=== PATIENT | female | born 1980 | race Caucasian/White ===

== ENCOUNTER 2020-09-06 11:02 | Outpatient (REF) | payer BC, SELFPAY ==
[2020-09-06 11:18] LABS: MANUAL DIFF FLAG NO
[2020-09-06 12:26] LABS: Basophils Absolute Auto 0.1 X10*3/uL (0.0-0.2); Eosinophils Absolute Auto 0.5 X10*3/uL (0.0-0.4); Eosinophils Percent Auto 6.5 % (0-4); Hemoglobin 13.1 g/dl (12.0-16.0); Imm Gran Abs Auto 0.03 X10*3/uL (0.00-0.03); Imm Gran Pct Auto 0.4 % (0.0-0.4); Lymphocytes Absolute Auto 1.5 X10*3/uL (1.2-4.9); Lymphocytes Percent Auto 20.7 % (20-40); Mean Corpuscular HGB Conc 31.2 g/dl (31.0-35.0); Mean Corpuscular Hemoglobin 28.9 pg (27.0-33.0); Mean Corpuscular Volume 92.5 fL (80-98); Mean Platelet Volume 11.5 fL (9.4-12.3); Monocytes Absolute Auto 0.4 X10*3/uL (0.1-1.2); Monocytes Percent Auto 5.8 % (2-11); Neutrophils Absolute Auto 4.7 X10*3/uL (2.0-8.3); Neutrophils Percent Auto 65.6 % (45-73); Platelet Count 238 X10*3/uL (160-400); Red Blood Count 4.54 X10*6/uL (4.20-5.50); Red Cell Distribution Width 13.1 % (11.0-16.0); White Blood Count 7.2 X10*3/uL (4.8-10.8)
[2020-09-06 12:58] LABS: Glucose Urine UA 100 MG/DL (NEG); Leukocyte Esterase Urine TRACE (NEG); Nitrite Urine POS (NEG); PH 5.5 (5.0-8.0); Specific Gravity - Urine >= 1.030 (1.005-1.025); Urine Blood TRACE (NEG); Urine Ketones 5 MG/DL (NEG); Urine Protein 1+ MG/DL (NEG-TRACE)
[2020-09-06 13:11] LABS: Albumin Level 4.1 g/dL (3.5-5.0); Alkaline Phosphatase 53 U/L (39-117); Anion Gap 11 (12-20); Aspartate Amino Transferase 17 U/L (5-31); Bilirubin Total 0.9 mg/dL (0.0-1.0); Blood Urea Nitrogen 9 mg/dL (9-16); Calcium 9.2 mg/dL (8.4-10.2); Carbon Dioxide 24 mmol/L (22-29); Chloride 109 mmol/L (96-108); Cholesterol 223 mg/dL; Estimated Glomerular Filt Rate > 60; Glucose Fasting 100 mg/dL (60-99); HDL Cholesterol 50 mg/dL; LDL Cholesterol Calculated 142 mg/dl; Potassium 4.3 mmol/L (3.3-5.1); Sodium 140 mmol/L (135-145); Total Protein 7.1 g/dL (6.5-8.0); Triglycerides 159 mg/dL
[2020-09-06 13:24] LABS: Alanine Aminotransferase 8 U/L (0-31)
[2020-09-06 14:00] LABS: Appearance Urine CLEAR; Color Urine ORANGE
[2020-09-06 14:01] LABS: Bacteria Urine 2+ /LPF; Mucus Urine 1+ /LPF; RBC Urine 0-2 /HPF (0); Squamous Epithelial Cell Urine 1+ /LPF
== END 2020-09-06 11:03 | disposition home or self-care (01) ==
LOC: HO.LNP 11:02
PROVIDERS: PCP Internal Medicine; Visit Provider Internal Medicine
DX: Z00.00 Encounter for general adult medical examination without abnormal findings (principal); K57.90 Diverticulosis of intestine, part unspecified, without perforation or abscess without bleeding
CPT/HCPCS: 80053; 80061; 81001; 81003; 85025

== ENCOUNTER 2020-09-20 10:14 | Outpatient (REF) | payer BC, SELFPAY ==
[2020-09-20 11:07] LABS: Glucose Urine UA NEG (NEG); Leukocyte Esterase Urine TRACE (NEG); Nitrite Urine NEG (NEG); Specific Gravity - Urine >= 1.030 (1.005-1.025); Urine Blood 1+ (NEG); Urine Ketones NEG (NEG); Urine Protein TRACE MG/DL (NEG-TRACE)
[2020-09-20 11:16] LABS: Appearance Urine TURBID; Color Urine YELLOW
[2020-09-20 11:42] LABS: Bacteria Urine 2+ /LPF; RBC Urine 0-2 /HPF (0); Squamous Epithelial Cell Urine 2+ /LPF
== END 2020-09-20 10:15 | disposition home or self-care (01) ==
LOC: HO.LNP 10:14
PROVIDERS: Visit Provider Internal Medicine
DX: Z87.440 Personal history of urinary (tract) infections (principal)
CPT/HCPCS: 81001

== ENCOUNTER 2020-10-31 15:43 | Outpatient (REF) | payer BC, SELFPAY ==
[2020-10-31 15:57] LABS: Glucose Urine UA NEG (NEG); Leukocyte Esterase Urine NEG (NEG); Nitrite Urine NEG (NEG); Specific Gravity - Urine >= 1.030 (1.005-1.025); Urine Blood NEG (NEG); Urine Ketones 5 MG/DL (NEG); Urine Protein NEG (NEG-TRACE)
[2020-10-31 15:59] LABS: Appearance Urine CLEAR; Color Urine YELLOW
== END 2020-10-31 15:44 | disposition home or self-care (01) ==
LOC: HO.LNP 15:43
PROVIDERS: Visit Provider Internal Medicine
DX: R31.9 Hematuria, unspecified (principal)
CPT/HCPCS: 81003

== ENCOUNTER 2021-03-17 14:08 | Outpatient (REF) | payer BC, SELFPAY ==
[2021-03-17 15:17] LABS: Thyroid Stimulating Hormone 2.64 uIU/mL (0.32-4.0)
== END 2021-03-17 14:09 | disposition home or self-care (01) ==
LOC: HO.LNP 14:08
PROVIDERS: Visit Provider Internal Medicine
DX: R63.5 Abnormal weight gain (principal)
CPT/HCPCS: 84443

== ENCOUNTER 2021-09-15 11:19 | Outpatient (REF) | payer BC, SELFPAY ==
[2021-09-15 11:22] LABS: MANUAL DIFF FLAG NO
[2021-09-15 11:47] LABS: Basophils Percent Auto 0.6 % (0-2); Eosinophils Absolute Auto 0.3 X10*3/uL (0.0-0.4); Eosinophils Percent Auto 4.8 % (0-4); Imm Gran Abs Auto 0.02 X10*3/uL (0.00-0.03); Imm Gran Pct Auto 0.3 % (0.0-0.4); Lymphocytes Absolute Auto 1.6 X10*3/uL (1.2-4.9); Lymphocytes Percent Auto 25.9 % (20-40); Mean Corpuscular HGB Conc 31.7 g/dl (31.0-35.0); Mean Corpuscular Hemoglobin 28.4 pg (27.0-33.0); Mean Corpuscular Volume 89.7 fL (80.0-98.0); Mean Platelet Volume 11.3 fL (9.4-12.3); Monocytes Absolute Auto 0.4 X10*3/uL (0.1-1.2); Monocytes Percent Auto 5.8 % (2-11); Neutrophils Absolute Auto 3.9 x10*3/uL (2.0-8.3); Neutrophils Percent Auto 62.6 % (45-73); Platelet Count 241 X10*3/uL (160-400); Red Blood Count 4.57 X10*6/uL (4.20-5.50); White Blood Count 6.3 X10*3/uL (4.8-10.8)
[2021-09-15 12:01] LABS: Alanine Aminotransferase 13 U/L (0-31); Albumin Level 3.9 g/dL (3.5-5.0); Alkaline Phosphatase 61 U/L (39-117); Anion Gap 9 (12-20); Aspartate Amino Transferase 21 U/L (5-31); Blood Urea Nitrogen 9 mg/dL (9-16); Calcium 8.9 mg/dL (8.4-10.2); Carbon Dioxide 26 mmol/L (22-29); Chloride 105 mmol/L (96-108); Cholesterol 228 mg/dL; Estimated Glomerular Filt Rate > 60; Glucose Fasting 98 mg/dL (60-99); HDL Cholesterol 40 mg/dL; LDL Cholesterol Calculated 147 mg/dl; Sodium 136 mmol/L (135-145); Total Protein 6.9 g/dL (6.5-8.0); Triglycerides 208 mg/dL
[2021-09-15 12:23] LABS: Appearance Urine CLOUDY; Color Urine YELLOW; Glucose Urine UA NEG (NEG); Leukocyte Esterase Urine NEG (NEG); Nitrite Urine NEG (NEG); Specific Gravity - Urine >= 1.030 (1.005-1.025); Urine Blood TRACE (NEG); Urine Ketones 5 MG/DL (NEG); Urine Protein TRACE MG/DL (NEG-TRACE)
[2021-09-15 13:09] LABS: Bacteria Urine 4+ /LPF; RBC Urine 0 /HPF (0); Squamous Epithelial Cell Urine 4+ /LPF
== END 2021-09-15 11:20 | disposition home or self-care (01) ==
LOC: HO.LNP 11:19
PROVIDERS: PCP Internal Medicine; Visit Provider Internal Medicine
DX: Z00.00 Encounter for general adult medical examination without abnormal findings (principal)
CPT/HCPCS: 80053; 80061; 81001; 85025

== ENCOUNTER 2022-05-08 16:29 | Inpatient (IN) | payer BC, SELFPAY ==
--- NOTE | ~2022-05-08 | CT_ITS ---
EXAMINATION: CT ABDOMEN AND PELVIS WITHOUT CONTRAST CLINICAL INFORMATION: Abdominal pain COMPARISON: CT abdomen pelvis 12/27/2015 TECHNIQUE: Multidetector volumetric imaging was performed from the superior aspect of the liver through the pubic symphysis. Sagittal and coronal reformatted images were obtained on the technologist's workstation. This CT examination was performed using dose optimization techniques as appropriate, variously including the following: *Automated exposure control *Adjustment of mA and/or kV according to patient size (this includes techniques or standardized protocols for targeted exams where dose is matched to indication/reason for exam; i.e. extremities or head) *Use of iterative reconstruction technique DLP: 611 mGy-cm FINDINGS: LUNG BASES: Unremarkable. ABDOMINAL AND PELVIC WALL: Unremarkable. LIVER AND BILIARY TREE: Unremarkable. GALLBLADDER: Unremarkable. PANCREAS: Unremarkable. SPLEEN: Stable accessory splenule. ADRENAL GLANDS: Unremarkable. KIDNEYS AND URETERS: Unremarkable. GASTROINTESTINAL TRACT: Small hiatal hernia. Colonic diverticulosis with wall thickening involving the junction of the sigmoid and descending colon with pericolonic inflammatory fat stranding and trace free fluid compatible with acute diverticulitis. There is a 2.7 x 1.6 cm fluid density lesion in the left adnexa abutting the sigmoid colon and inseparable from the left ovary incomplete characterized in the absence of contrast, unclear if this could reflect an adnexal cyst or a pericolonic abscess. No extraluminal air to suggest perforation. Normal appendix. VASCULAR: Unremarkable. LYMPH NODES/PERITONEUM: No lymphadenopathy. FREE FLUID: None. BLADDER: Unremarkable. PELVIC VISCERA: Unremarkable. OSSEOUS STRUCTURES: Unremarkable. CT/CT abdomen pelvis wo IV con IMPRESSION: Colonic diverticulosis with wall thickening involving the junction of the sigmoid and descending colon with pericolonic inflammatory fat stranding and trace free fluid compatible with acute diverticulitis. There is a 2.7 cm fluid density lesion in the left adnexa abutting the sigmoid colon and inseparable from the left ovary incomplete characterized in the absence of contrast, unclear if this could reflect an adnexal cyst or a pericolonic abscess. Consider contrast-enhanced CT versus pelvic ultrasound for further delineation.
--- NOTE | ~2022-05-08 | CT_ITS ---
EXAMINATION: CT ABDOMEN AND PELVIS WITH CONTRAST CLINICAL INFORMATION: Possible pericolonic abscess COMPARISON: CT abdomen pelvis 05/08/2022 at 6:09 PM TECHNIQUE: Multidetector volumetric images were obtained from the superior aspect of the liver through the pubic symphysis following administration 85 mL of Omnipaque 350 intravenous contrast. Sagittal and coronal reformatted images were obtained on the technologist's workstation. Oral contrast: No This CT examination was performed using dose optimization techniques as appropriate, variously including the following: *Automated exposure control *Adjustment of mA and/or kV according to patient size (this includes techniques or standardized protocols for targeted exams where dose is matched to indication/reason for exam; i.e. extremities or head) *Use of iterative reconstruction technique DLP: 938 mGy-cm FINDINGS: LUNG BASES: The visualized lung bases are unremarkable. LIVER, GALLBLADDER, AND BILIARY TREE: The liver is normal in size, shape, and attenuation. No focal hepatic lesion or biliary ductal dilatation is present. The gallbladder is unremarkable with no evidence of radiopaque gallstones, gallbladder wall thickening, or obvious pericholecystic inflammatory changes. PANCREAS: Unremarkable. SPLEEN: Unremarkable. ADRENAL GLANDS: The adrenal glands are unremarkable. However there is a 1.8 x 1.8 cm lesion adjacent to the adrenal gland and the spleen likely an accessory splenule. KIDNEYS AND URETERS: The kidneys are normal in size, shape, and attenuation. No hydronephrosis, hydroureter, or calculi seen. No perinephric stranding. BLADDER: Unremarkable. GASTROINTESTINAL TRACT: There is scattered stool, diverticuli and gas seen throughout the colon without any significant distention. There is mild fat stranding and sigmoid colon mural thickening suggestive of diverticulitis. No evidence of abscess of free air. Tiny free fluid in the pelvis is noted. No proximal bowel obstruction seen. There is minimal scattered stool in the right colon. The small bowel loops are normal caliber. Appendix is normal caliber. Hypodensity seen inferior to the sigmoid colon and lateral to the uterus corresponds to ovarian cyst measuring 1.3 cm. ABDOMINAL WALL: Small amount of umbilical hernia containing fat. LYMPH NODES: Normal. VASCULAR: Unremarkable. PELVIC VISCERA: There is a 1.3 cm cyst in the left adnexa inferior to the sigmoid colon and a 1.2 cm cyst in the right ovary on axial image 75/3 and 74/3 respectively. Tiny amount of free fluid seen in pelvis. No abnormal pelvic or inguinal lymph nodes seen. The uterus is anteverted. OSSEOUS STRUCTURES: Unremarkable. CT/CT abdomen pelvis w IV con IMPRESSION: 1. Colonic diverticulosis with sigmoid diverticulitis. No evidence of abscess, free air or proximal bowel obstruction. 2. Small bilateral ovarian cysts. 3. Small umbilical hernia containing fat. 4. There is a 1.8 x 1.8 cm lesion adjacent to the adrenal glands and the spleen suspicious for a accessory splenule. Fleischner guidelines were followed.
[2022-05-08 16:36] VITALS: BP 155/92; PULSE 97; RESP 18; TEMP 36; O2SAT 98; BMI 37.0
--- NOTE | 2022-05-08 16:36 | ED.GENADULT ---
HPI - General Adult General Chief complaint: Abdominal Pain <RONNY Hernandez - Last Filed: 05/08/22 16:38> Stated complaint: Abd pain rad to back/Dark stool <RONNY Hernandez - Last Filed: 05/08/22 16:38> Time Seen by Provider: 05/08/22 19:49 <RONNY Hernandez - Last Filed: 05/08/22 16:38> Source: patient <aJnice Le NP - Last Filed: 05/09/22 00:46> Mode of arrival: ambulatory <Janice Le NP - Last Filed: 05/09/22 00:46> Limitations: no limitations <Janice Le NP - Last Filed: 05/09/22 00:46> History of Present Illness HPI narrative: 42-year-old female presents with left lower quadrant abdominal pain radiating her to her back for the past almost 2 days. States that she has been having dark mucousy stools and has history of colitis. <Janice Le NP - Last Filed: 05/09/22 00:46> Onset (ago): day(s) (2) <Janice Le NP - Last Filed: 05/09/22 00:46> Location: abdomen <Janice Le NP - Last Filed: 05/09/22 00:46> Radiation: back <Janice Le NP - Last Filed: 05/09/22 00:46> Severity: severe <Janice Le NP - Last Filed: 05/09/22 00:46> Severity scale (1-10): 9 <Janice Le NP - Last Filed: 05/09/22 00:46> Quality: aching <Janice Le NP - Last Filed: 05/09/22 00:46> Pain Consistency: constant <Janice Le NP - Last Filed: 05/09/22 00:46> Relieving factors: none <Janice Le NP - Last Filed: 05/09/22 00:46> Exacerbating factors: eating and movement <Janice Le NP - Last Filed: 05/09/22 00:46> Associated symptoms: fever/chills, loss of appetite, malaise and nausea/vomiting <Janice Le NP - Last Filed: 05/09/22 00:46> Treatments prior to arrival: none <Janice Le NP - Last Filed: 05/09/22 00:46> Related Data Home medications: Home Medications Medication Instructions Recorded Confirmed No Known Home Meds 05/08/22 05/08/22 <RONNY Hernandez - Last Filed: 05/08/22 16:38> Allergies/adverse reactions: Allergies Allergy/AdvReac Type Severity Reaction Status Date / Time No Known Allergies Allergy Verified 05/08/22 16:38 <RONNY Hernandez - Last Filed: 05/08/22 16:38> Review of Systems Review of Systems: Constitutional: No Fever, No Chills Cardiovascular: No Chest Pain, No SOB Respiratory: No Cough, No Dyspnea Gastrointestinal: Positive Nausea, No Vomiting, No Diarrhea, positive abdominal Pain Genitourinary: No Dysuria, No Hematuria Musculoskeletal: positive back pain, No Myalgias, No Joint Swelling Skin: No Skin lacerations, No rash Neuro: No Weakness, No Numbness, No Paresthesias, No Dizziness, No Headache <Janice Le NP - Last Filed: 05/09/22 00:46> Yes all other systems are reviewed and are negative <Janice Le NP - Last Filed: 05/09/22 00:46> [facility] Past Medical History Attestation statement: The following information was validated with the patient. <Janice Le NP - Last Filed: 05/09/22 00:46> Source: old records reviewed <Janice Le NP - Last Filed: 05/09/22 00:46> Surgical History: Surgical History Previous section S/P ACL repair <RONNY Hernandez - Last Filed: 05/08/22 16:38> Social History Social History: Social History Alcohol intake: current Alcohol intake frequency: a few times a month Alcohol type: beer Patient Tobacco Use Status: Never used Tobacco Smoked in Last 30 Days: No Use of substances other than those prescribed or required for medical reasons: Yes Substance Use Type: Marijuana Substance Use Frequency: Occasionally Advance Directives: No Advance Directives Information Provided: No Nutrition Risks: No Nutritional Risk Patient : No <RONNY Hernandez Last Filed: 05/08/22 16:38> Physical Exam ED Vital Signs: Vital Signs - 24 hr 05/08/22 16:36 05/08/22 20:14 Temperature 96.8 F 96.7 F L Pulse Rate 97 89 Respiratory Rate 18 19 Blood Pressure 155/92 H 133/71 Pulse Oximetry 98 96 Oxygen Delivery Method Room Air BMI result Body Mass Index 37.0 <RONNY Hernandez Last Filed: 05/08/22 16:38> Vital Signs - 24 hr 05/08/22 16:36 05/08/22 20:14 Temperature 96.8 F 96.7 F L Pulse Rate 97 89 Respiratory Rate 18 19 Blood Pressure 155/92 H 133/71 Pulse Oximetry 98 96 Oxygen Delivery Method Room Air BMI result Body Mass Index 37.0 <EDOUARD Singh Last Filed: 05/09/22 00:46> Appearance: Alert. Oriented X3. Moderate distress. Eyes: Pupils equal, round and reactive to light. ENT: Pharynx normal. Neck: Normal inspection. Neck supple. CVS: Normal heart rate and rhythm. Pulses normal. Respiratory: No respiratory distress. Breath sounds normal. Abdomen: Soft and diffusely tender. Greater at the left lower quadrant. No rigidity or distention. Skin: Skin warm and dry. Normal skin color. Normal skin turgor. Extremities: No lower extremity edema. Gait well-balanced well coordinated. Neuro: No motor deficit. No sensory deficit. Cranial nerves 2-12 intact. <EDOUARD Singh Last Filed: 05/09/22 00:46> Course Course Course Narrative: RME performed by Jeanine Paniagua PA-C. Patient is a 42 year old female presenting to the emergency department with left lower quadrant abdominal pain. Patient has a history of diverticulum but not diverticulitis. Labs and CT ordered. Patient placed back in the waiting room pending results and room availability. <RONNY Hernandez Last Filed: 05/08/22 16:38> RME performed by Jeanine Paniagua, PA-C. Patient is a 42 year old female presenting to the emergency department with left lower quadrant abdominal pain. Patient has a history of diverticulum but not diverticulitis. Labs and CT ordered. Patient placed back in the waiting room pending results and room availability. 42-year-old female presents for 2 days of abdominal pain with mucousy dark stools. Has a history of colitis. Labs drawn and CT scan while patient was in the emergency department waiting room. CT scan indicates diverticulosis with wall thickening involving the junction of the sigmoid and descending colon with pericolonic inflammatory fat stranding. There is a 2.7 x 1.6 fluid density lesion in the left adnexa abutting the sigmoid colon, this test is requesting CT scan with contrast to rule out pericolonic abscess. CT scan with contrast ordered. I did discuss the plan with patient who agrees. Will give Motrin, Zosyn, and fluids. CT scan abdomen pelvis with contrast indicates colonic diverticulitis without abscess free air or proximal bowel obstruction. Small bilateral ovarian cysts, small umbilical hernia containing fat, and a 1.8 x 1.8 cm lesion adjacent to the adrenal glands and spleen suspicious for accessory splenule. Patient admitted for diverticulitis. Discussion with Dr. Ruiz, who accepts this patient under his care. <Janice Le NP - Last Filed: 05/09/22 00:46> Consultations Consultation #1: Joseph <Janice Le NP - Last Filed: 05/09/22 00:46> Medications Administered Discontinued Medications Generic Name Dose Route Start Last Admin Trade Name Freq PRN Reason Stop Dose Admin Piperacillin Sod/Tazobactam 50 mls @ 100 mls/hr 05/08/22 19:54 05/08/22 22:12 Sod 3.375 gm/ Sodium Chloride IV 05/08/22 20:23 Infused ONCE ONE Infusion Sodium Chloride 1,000 mls @ 999 mls/hr 05/08/22 21:26 05/08/22 23:13 Ns IV 05/08/22 22:26 Infused .Q1H1M ONE Infusion Iohexol 100 ml 05/08/22 20:53 05/08/22 20:53 Iohexol 350 Mg/Ml 100 Ml Infus..Btl IV 05/08/22 20:54 85 ml ONCE ONE Administration Morphine Sulfate 4 mg 05/08/22 19:54 05/08/22 20:35 Morphine Sulfate 4 Mg/Ml Cartridge IVPUSH 05/08/22 19:55 4 mg ONCE ONE Administration Protocol Ondansetron HCl 4 mg 05/08/22 19:54 05/08/22 20:34 Ondansetron Hcl 4 Mg/2 Ml Vial IVPUSH 05/08/22 19:55 4 mg ONCE ONE Administration <RONNY Hernandez - Last Filed: 05/08/22 16:38> Medications Administered Discontinued Medications Generic Name Dose Route Start Last Admin Trade Name Priscilla PRN Reason Stop Dose Admin Piperacillin Sod/Tazobactam 50 mls @ 100 mls/hr 05/08/22 19:54 05/08/22 22:12 Sod 3.375 gm/ Sodium Chloride IV 05/08/22 20:23 Infused ONCE ONE Infusion Sodium Chloride 1,000 mls @ 999 mls/hr 05/08/22 21:26 05/08/22 23:13 Ns IV 05/08/22 22:26 Infused .Q1H1M ONE Infusion Iohexol 100 ml 05/08/22 20:53 05/08/22 20:53 Iohexol 350 Mg/Ml 100 Ml Infus..Btl IV 05/08/22 20:54 85 ml ONCE ONE Administration Morphine Sulfate 4 mg 05/08/22 19:54 05/08/22 20:35 Morphine Sulfate 4 Mg/Ml Cartridge IVPUSH 05/08/22 19:55 4 mg ONCE ONE Administration Protocol Ondansetron HCl 4 mg 05/08/22 19:54 05/08/22 20:34 Ondansetron Hcl 4 Mg/2 Ml Vial IVPUSH 05/08/22 19:55 4 mg ONCE ONE Administration <Janice Le NP - Last Filed: 05/09/22 00:46> Medical Decision Making Differential Diagnosis Differential Diagnoses: The differential diagnosis associated with the presentation includes <Janice Le NP - Last Filed: 05/09/22 00:46> Acute abdomen, diverticulitis, colitis, abscess <Janice Le NP - Last Filed: 05/09/22 00:46> Admission/Observation Consideration of admission/observation: Escalation of care including admission/observation considered <Janice Le NP - Last Filed: 05/09/22 00:46> Patient requires admission for these findings <Jancie Le NP - Last Filed: 05/09/22 00:46> Consult Healthcare Provider Management of the patient was discussed with: Hospitalist <Janice Le NP - Last Filed: 05/09/22 00:46> Lab Data MDM Lab Attestation statement: I reviewed the patient's lab results. <Janice Le NP - Last Filed: 05/09/22 00:46> Result Diagrams: 05/08/22 16:50 05/08/22 16:50 <RONNY Hernandez - Last Filed: 05/08/22 16:38> Labs: Lab Results 05/08/22 05/08/22 05/08/22 Range/Units 16:50 16:50 20:08 WBC 11.1 H (4.8-10.8) X10*3/uL RBC 4.72 (4.20-5.50) X10*6/uL Hgb 13.7 (12.0-16.0) g/dl Hct 41.4 (37.0-47.0) % MCV 87.7 (80.0-98.0) fL MCH 29.0 (27.0-33.0) pg MCHC 33.1 (31.0-35.0) g/dl RDW 13.4 (11.0-16.0) % Plt Count 239 (160-400) X10*3/uL MPV 10.5 (9.4-12.3) fL Immature Gran % (Auto) 0.2 (0.0-0.4) % Neut % (Auto) 76.9 H (45-73) % Lymph % (Auto) 15.6 L (20-40) % [place] % (Auto) 5.4 (2-11) % Eos % (Auto) 1.6 (0-4) % Baso % (Auto) 0.3 (0-2) % Lymph # (Auto) 1.7 (1.2-4.9) X10*3/uL [place] # (Auto) 0.6 (0.1-1.2) X10*3/uL Eos # (Auto) 0.2 (0.0-0.4) X10*3/uL Baso # (Auto) 0.0 (0.0-0.2) X10*3/uL Abs Immat Gran (auto) 0.02 (0.00-0.03) X10*3/uL Absolute Neuts (auto) 8.5 H (2.0-8.3) x10*3/uL Absolute Nucleated RBC 0.000 (0.0-0.012) X10*3/uL Nucleated RBC % (auto) 0.0 (0.0-0.2) /100WBC Sodium 139 (135-145) mmol/L Potassium 3.9 (3.3-5.1) mmol/L Chloride 106 (96-108) mmol/L Carbon Dioxide 22 (22-29) mmol/L Anion Gap 15 (12-20) BUN 8 L (9-16) mg/dL Creatinine 0.86 (0.5-1.4) mg/dL Estim Creat Clear Calc 92.3 Estimated GFR > 60 Random Glucose 94 (60-115) mg/dL Calcium 9.2 (8.4-10.2) mg/dL Magnesium 2.1 (1.6-2.6) mg/dL Total Bilirubin 1.6 H (0.0-1.0) mg/dL AST 14 (5-31) U/L ALT 8 (0-31) U/L Alkaline Phosphatase 74 (39-117) U/L Total Protein 7.3 (6.5-8.0) g/dL Albumin 4.1 (3.5-5.0) g/dL Beta HCG, Quant < 2 mIU/mL Urine Color Dark Yellow Urine Appearance Clear Urine pH 5.5 (5.0-9.0) Ur Specific [place] 1.025 (1.005-1.025) Urine Protein Trace (Neg-Trace) mg/dL Urine Glucose (UA) Negative (Negative) mg/dL Urine Ketones 15 (Negative) mg/dL Urine Blood Trace H (Negative) Urine Nitrite Negative (Negative) Ur Leukocyte Esterase Trace H (Negative) Urine RBC 0-2 (0-2) /HPF Urine WBC 0-5 (0-5) /HPF Ur Squamous Epith Cells 0-2 (0-2) /HPF Urine Bacteria None Seen (None Seen) Hyaline Casts 0-2 (0-2) /LPF <RONNY Hernandez - Last Filed: 05/08/22 16:38> Lab Results 05/08/22 05/08/22 05/08/22 Range/Units 16:50 16:50 20:08 WBC 11.1 H (4.8-10.8) X10*3/uL RBC 4.72 (4.20-5.50) X10*6/uL Hgb 13.7 (12.0-16.0) g/dl Hct 41.4 (37.0-47.0) % MCV 87.7 (80.0-98.0) fL MCH 29.0 (27.0-33.0) pg MCHC 33.1 (31.0-35.0) g/dl RDW 13.4 (11.0-16.0) % Plt Count 239 (160-400) X10*3/uL MPV 10.5 (9.4-12.3) fL Immature Gran % (Auto) 0.2 (0.0-0.4) % Neut % (Auto) 76.9 H (45-73) % Lymph % (Auto) 15.6 L (20-40) % [place] % (Auto) 5.4 (2-11) % Eos % (Auto) 1.6 (0-4) % Baso % (Auto) 0.3 (0-2) % Lymph # (Auto) 1.7 (1.2-4.9) X10*3/uL [place] # (Auto) 0.6 (0.1-1.2) X10*3/uL Eos # (Auto) 0.2 (0.0-0.4) X10*3/uL Baso # (Auto) 0.0 (0.0-0.2) X10*3/uL Abs Immat Gran (auto) 0.02 (0.00-0.03) X10*3/uL Absolute Neuts (auto) 8.5 H (2.0-8.3) x10*3/uL Absolute Nucleated RBC 0.000 (0.0-0.012) X10*3/uL Nucleated RBC % (auto) 0.0 (0.0-0.2) /100WBC Sodium 139 (135-145) mmol/L Potassium 3.9 (3.3-5.1) mmol/L Chloride 106 (96-108) mmol/L Carbon Dioxide 22 (22-29) mmol/L Anion Gap 15 (12-20) BUN 8 L (9-16) mg/dL Creatinine 0.86 (0.5-1.4) mg/dL Estim Creat Clear Calc 92.3 Estimated GFR > 60 Random Glucose 94 (60-115) mg/dL Calcium 9.2 (8.4-10.2) mg/dL Magnesium 2.1 (1.6-2.6) mg/dL Total Bilirubin 1.6 H (0.0-1.0) mg/dL AST 14 (5-31) U/L ALT 8 (0-31) U/L Alkaline Phosphatase 74 (39-117) U/L Total Protein 7.3 (6.5-8.0) g/dL Albumin 4.1 (3.5-5.0) g/dL Beta HCG, Quant < 2 mIU/mL Urine Color Dark Yellow Urine Appearance Clear Urine pH 5.5 (5.0-9.0) Ur Specific [place] 1.025 (1.005-1.025) Urine Protein Trace (Neg-Trace) mg/dL Urine Glucose (UA) Negative (Negative) mg/dL Urine Ketones 15 (Negative) mg/dL Urine Blood Trace H (Negative) Urine Nitrite Negative (Negative) Ur Leukocyte Esterase Trace H (Negative) Urine RBC 0-2 (0-2) /HPF Urine WBC 0-5 (0-5) /HPF Ur Squamous Epith Cells 0-2 (0-2) /HPF Urine Bacteria None Seen (None Seen) Hyaline Casts 0-2 (0-2) /LPF <Janice Le NP - Last Filed: 05/09/22 00:46> Independent Interpretation I performed an independent interpretation of an: CT Scan <Janice Le NP - Last Filed: 05/09/22 00:46> Radiology Impression Discussion of test interpretation with radiology: I have reviewed the radiologist's reading. <Janice Le NP - Last Filed: 05/09/22 00:46> Radiologist Impression: FINDINGS: LUNG BASES: Unremarkable.? ABDOMINAL AND PELVIC WALL:? Unremarkable.? LIVER AND BILIARY TREE: Unremarkable.? GALLBLADDER: Unremarkable.? PANCREAS: Unremarkable.? SPLEEN: Stable accessory splenule.? ADRENAL GLANDS: Unremarkable.? KIDNEYS AND URETERS: Unremarkable.? GASTROINTESTINAL TRACT: Small hiatal hernia. Colonic diverticulosis with wall thickening involving the junction of the sigmoid and descending colon with pericolonic inflammatory fat stranding and trace free fluid compatible with acute diverticulitis. There is a 2.7 x 1.6 cm fluid density lesion in the left adnexa abutting the sigmoid colon and inseparable from the left ovary incomplete characterized in the absence of contrast, unclear if this could reflect an adnexal cyst or a pericolonic abscess. No extraluminal air to suggest perforation. Normal appendix. VASCULAR: Unremarkable. LYMPH NODES/PERITONEUM: No lymphadenopathy. FREE FLUID: None. BLADDER: Unremarkable.? PELVIC VISCERA: Unremarkable. OSSEOUS STRUCTURES: Unremarkable.? CT/CT abdomen pelvis wo IV con IMPRESSION: ? Colonic diverticulosis with wall thickening involving the junction of the sigmoid and descending colon with pericolonic inflammatory fat stranding and trace free fluid compatible with acute diverticulitis. There is a 2.7 cm fluid density lesion in the left adnexa abutting the sigmoid colon and inseparable from the left ovary incomplete characterized in the absence of contrast, unclear if this could reflect an adnexal cyst or a pericolonic abscess. Consider contrast-enhanced CT versus pelvic ultrasound for further delineation. ?FINDINGS: LUNG BASES: The visualized lung bases are unremarkable.? LIVER, GALLBLADDER, AND BILIARY TREE: The liver is normal in size, shape, and attenuation. No focal hepatic lesion or biliary ductal dilatation is present. The gallbladder is unremarkable with no evidence of radiopaque gallstones, gallbladder wall thickening, or obvious pericholecystic inflammatory changes.? PANCREAS: Unremarkable.? SPLEEN: Unremarkable.? ADRENAL GLANDS: The adrenal glands are unremarkable. However there is a 1.8 x 1.8 cm lesion adjacent to the adrenal gland and the spleen likely an accessory splenule.? KIDNEYS AND URETERS: The kidneys are normal in size, shape, and attenuation. No hydronephrosis, hydroureter, or calculi seen. No perinephric stranding. ? BLADDER: Unremarkable.? GASTROINTESTINAL TRACT: There is scattered stool, diverticuli and gas seen throughout the colon without any significant distention. There is mild fat stranding and sigmoid colon mural thickening suggestive of diverticulitis. No evidence of abscess of free air. Tiny free fluid in the pelvis is noted. No proximal bowel obstruction seen. There is minimal scattered stool in the right colon. The small bowel loops are normal caliber. Appendix is normal caliber. Hypodensity seen inferior to the sigmoid colon and lateral to the uterus corresponds to ovarian cyst measuring 1.3 cm. ABDOMINAL WALL: Small amount of umbilical hernia containing fat.? LYMPH NODES: Normal. VASCULAR: Unremarkable. PELVIC VISCERA: There is a 1.3 cm cyst in the left adnexa inferior to the sigmoid colon and a 1.2 cm cyst in the right ovary on axial image 75/3 and 74/3 respectively. Tiny amount of free fluid seen in pelvis. No abnormal pelvic or inguinal lymph nodes seen. The uterus is anteverted. OSSEOUS STRUCTURES: Unremarkable.? CT/CT abdomen pelvis w IV con IMPRESSION: 1.? Colonic diverticulosis with sigmoid diverticulitis. No evidence of abscess, free air or proximal bowel obstruction. 2.? Small bilateral ovarian cysts. 3.? Small umbilical hernia containing fat.? 4.? There is a 1.8 x 1.8 cm lesion adjacent to the adrenal glands and the spleen suspicious for a accessory splenule. ? Fleischner guidelines were followed. <Janice Le NP - Last Filed: 05/09/22 00:46> External Record Review External record reviewed: Outpatient record and Prior outpatient labs <Janice Le NP - Last Filed: 05/09/22 00:46> Prescription Management I considered prescription management with: Pain Medication and Antibiotic <Janice Le NP - Last Filed: 05/09/22 00:46> Discharge Plan Discharge Clinical Impression: Colitis, Diverticulitis <RONNY Hernandez - Last Filed: 05/08/22 16:38> Patient Disposition: Admitted As Inpatient <RONNY Hernandez - Last Filed: 05/08/22 16:38>
[2022-05-08 16:53] LABS: MANUAL DIFF FLAG NO
[2022-05-08 16:57] LABS: Basophils Percent Auto 0.3 % (0-2); Eosinophils Absolute Auto 0.2 X10*3/uL (0.0-0.4); Eosinophils Percent Auto 1.6 % (0-4); Hematocrit 41.4 % (37.0-47.0); Hemoglobin 13.7 g/dl (12.0-16.0); Imm Gran Abs Auto 0.02 X10*3/uL (0.00-0.03); Imm Gran Pct Auto 0.2 % (0.0-0.4); Lymphocytes Absolute Auto 1.7 X10*3/uL (1.2-4.9); Lymphocytes Percent Auto 15.6 % (20-40); Mean Corpuscular HGB Conc 33.1 g/dl (31.0-35.0); Mean Corpuscular Volume 87.7 fL (80.0-98.0); Mean Platelet Volume 10.5 fL (9.4-12.3); Monocytes Absolute Auto 0.6 X10*3/uL (0.1-1.2); Monocytes Percent Auto 5.4 % (2-11); Neutrophils Absolute Auto 8.5 x10*3/uL (2.0-8.3); Neutrophils Percent Auto 76.9 % (45-73); Platelet Count 239 X10*3/uL (160-400); Red Blood Count 4.72 X10*6/uL (4.20-5.50); Red Cell Distribution Width 13.4 % (11.0-16.0); White Blood Count 11.1 X10*3/uL (4.8-10.8)
[2022-05-08 17:25] LABS: Alanine Aminotransferase 8 U/L (0-31); Albumin Level 4.1 g/dL (3.5-5.0); Alkaline Phosphatase 74 U/L (39-117); Anion Gap 15 (12-20); Aspartate Amino Transferase 14 U/L (5-31); Bilirubin Total 1.6 mg/dL (0.0-1.0); Blood Urea Nitrogen 8 mg/dL (9-16); Calcium 9.2 mg/dL (8.4-10.2); Carbon Dioxide 22 mmol/L (22-29); Chloride 106 mmol/L (96-108); Creatinine Clr Calc Pharmacy 92.3; Estimated Glomerular Filt Rate > 60; Glucose Random 94 mg/dL (60-115); HCG Quantitative < 2 mIU/mL; Magnesium 2.1 mg/dL (1.6-2.6); Potassium 3.9 mmol/L (3.3-5.1); Sodium 139 mmol/L (135-145); Total Protein 7.3 g/dL (6.5-8.0)
[2022-05-08 20:14] VITALS: BP 133/71; PULSE 89; RESP 19; TEMP 35.9; O2SAT 96
[2022-05-08 20:21] LABS: Appearance Urine Clear; Color Urine Dark Yellow; Glucose Urine UA Negative (Negative); Leukocyte Esterase Urine Trace (Negative); Nitrite Urine Negative (Negative); PH 5.5 (5.0-9.0); Specific Gravity - Urine 1.025 (1.005-1.025); UMIC TRIGGER UACC YES; Urine Blood Trace (Negative); Urine Ketones 15 mg/dL (Negative); Urine Protein Trace mg/dL (Neg-Trace)
[2022-05-08 20:23] LABS: Bacteria Urine None Seen (None Seen); Hyaline Casts Urine 0-2 /LPF (0-2); RBC Urine 0-2 /HPF (0-2); Squamous Epithelial Cell Urine 0-2 /HPF (0-2); WBC Urine 0-5 /HPF (0-5)
[2022-05-08] MEDS: ondansetron HCL 4 MG/2 ML VIAL IVPUSH (20:34)
[2022-05-08] MEDS: Morphine Sulfate 4 MG/ML CARTRIDGE IVPUSH (20:35)
[2022-05-08] MEDS: iohexoL 350 MG/ML 100 ML INFUS..BTL IV (20:53)
--- NOTE | 2022-05-08 20:55 | PC.NURSE ---
medicated per provider order, tech at bedside obtaining blood cultures lactic, pt to CT. abx held pending collection of blood cultures.
[2022-05-08] MEDS: Piperacillin Sodium/Tazobactam 3.375 GM in 0.9 % Sodium Chloride 50 ML IV (20:58)
[2022-05-08 21:05] LABS: Lactic Acid 0.7 mmol/L (0.5-2.0)
--- NOTE | 2022-05-08 21:14 | PM.IMHP ---
History of Present Illness Date of Service: 05/08/22 Chief Complaint: Abdominal Pain This is a 42-year-old female with no pertinent past medical history and not on prescription medications presents to the emergency department for evaluation of left lower quadrant pain. Patient states she had sudden onset of left lower quadrant pain about 1 day prior to presentation . It was worse with p.o. intake and associated with significant nausea. Initially it was intermittent but soon progressed to being constant and without any relieving factors. Intermittent radiation to the back. Denies similar complaints in the past. Admitted about 3 years ago for abdominal discomfort when colonoscopy was done which was apparently normal. Endorses chills. She denies fever, chest discomfort, palpitations, shortness of breath, changes in urinary habits In the emergency department, imaging with acute diverticulitis. Review of Systems Constitutional: Constitutional: Reports chills Cardiovascular: Cardiovascular: Reports no additional cardiovascular complaints Respiratory: Respiratory: Reports no additional respiratory complaints Gastrointestinal: Gastrointestinal: Reports abdominal pain and Reports nausea Genitourinary: Genitourinary: Reports no additional female genitourinary complaints Musculoskeletal: Musculoskeletal: Reports no additional musculoskeletal complaints PMFSH Pertinent family history: mother with prediabetes Surgical History Previous section S/P ACL repair Social History Alcohol intake: current Alcohol intake frequency: a few times a month Alcohol type: beer Patient Tobacco Use Status: Never used Tobacco Smoked in Last 30 Days: No Use of substances other than those prescribed or required for medical reasons: Yes Substance Use Type: Marijuana Substance Use Frequency: Occasionally Advance Directives: No Advance Directives Information Provided: No Nutrition Risks: No Nutritional Risk Patient : No Meds Allergies Allergy/AdvReac Type Severity Reaction Status Date / Time No Known Allergies Allergy Verified 05/08/22 16:38 Active Medications: Current Medications Acetaminophen (Acetaminophen 325 Mg Tablet) 650 mg PO Q6H PRN PRN Reason: Pain, Mild (Pain Scale 1-3) Piperacillin Sod/Tazobactam (Sod 4.5 gm/ Sodium Chloride) 100 mls @ 200 mls/hr IV Q6H MAHI Melatonin (Melatonin 3 Mg Tablet) 6 mg PO BEDTIME PRN PRN Reason: Insomnia Morphine Sulfate (Morphine Sulfate 4 Mg/Ml Cartridge) 4 mg IVPUSH Q4H PRN; Protocol PRN Reason: Pain, Severe (Pain Scale 7-10) Ondansetron HCl (Ondansetron Hcl 4 Mg/2 Ml Vial) 4 mg IVPUSH Q8H PRN PRN Reason: Nausea and Vomiting Pharmacy Consult (Consult Rx Perform Med Rec) 1 each MISCELLANE ONCE PRN PRN Reason: Consult order Sodium Chloride (0.9 % Sodium Chloride Flush 3 Ml Syringe) 3 ml IVFLUSH QSHIFT [facility] Physical Exam Vital Signs and Narrative: Vital Signs: Last Vital Signs Temp 96.7 F L 05/08/22 20:14 Pulse 89 05/08/22 20:14 Resp 19 05/08/22 20:14 BP 133/71 05/08/22 20:14 Pulse Ox 96 05/08/22 20:14 O2 Del Method 05/08/22 20:14 BMI result Body Mass Index 37.0 Middle-aged female lying in bed in mild distress Neck supple, no JVD Regular rate and rhythm, S1-S2 heard Regular breath sounds bilaterally, no wheezing or crackles appreciated Abdomen with left lower quadrant tenderness, no guarding, no rebound tenderness, no rigidity Patient is awake, alert and oriented to self, place, time and person ; no focal motor deficit Psych: Normal mood No pedal edema Results Labs 05/08/22 16:50 05/08/22 16:50 Labs: Laboratory Results - last 24 hr 05/08/22 05/08/22 05/08/22 16:50 16:50 20:08 MCV 87.7 MCH 29.0 MCHC 33.1 RDW 13.4 Plt Count 239 MPV 10.5 Immature Gran % (Auto) 0.2 Neut % (Auto) 76.9 H Lymph % (Auto) 15.6 L [place] % (Auto) 5.4 Eos % (Auto) 1.6 Baso % (Auto) 0.3 Lymph # (Auto) 1.7 [place] # (Auto) 0.6 Eos # (Auto) 0.2 Baso # (Auto) 0.0 Abs Immat Gran (auto) 0.02 Absolute Neuts (auto) 8.5 H Absolute Nucleated RBC 0.000 Nucleated RBC % (auto) 0.0 Anion Gap 15 Estim Creat Clear Calc 92.3 Estimated GFR > 60 Random Glucose 94 Lactic Acid Calcium 9.2 Magnesium 2.1 Total Bilirubin 1.6 H AST 14 ALT 8 Alkaline Phosphatase 74 Total Protein 7.3 Albumin 4.1 Beta HCG, Quant < 2 Urine Color Dark Yellow Urine Appearance Clear Urine pH 5.5 Ur Specific [place] 1.025 Urine Protein Trace Urine Glucose (UA) Negative Urine Ketones 15 Urine Blood Trace H Urine Nitrite Negative Ur Leukocyte Esterase Trace H Urine RBC 0-2 Urine WBC 0-5 Ur Squamous Epith Cells 0-2 Urine Bacteria None Seen Hyaline Casts 0-2 05/08/22 20:46 MCV MCH MCHC RDW Plt Count MPV Immature Gran % (Auto) Neut % (Auto) Lymph % (Auto) [place] % (Auto) Eos % (Auto) Baso % (Auto) Lymph # (Auto) [place] # (Auto) Eos # (Auto) Baso # (Auto) Abs Immat Gran (auto) Absolute Neuts (auto) Absolute Nucleated RBC Nucleated RBC % (auto) Anion Gap Estim Creat Clear Calc Estimated GFR Random Glucose Lactic Acid 0.7 Calcium Magnesium Total Bilirubin AST ALT Alkaline Phosphatase Total Protein Albumin Beta HCG, Quant Urine Color Urine Appearance Urine pH Ur Specific [place] Urine Protein Urine Glucose (UA) Urine Ketones Urine Blood Urine Nitrite Ur Leukocyte Esterase Urine RBC Urine WBC Ur Squamous Epith Cells Urine Bacteria Hyaline Casts Imaging Radiologist's Impressions: Impressions Abdomen/Pelvis CT 05/08/22 18:15 IMPRESSION: Colonic diverticulosis with wall thickening involving the junction of the sigmoid and descending colon with pericolonic inflammatory fat stranding and trace free fluid compatible with acute diverticulitis. There is a 2.7 cm fluid density lesion in the left adnexa abutting the sigmoid colon and inseparable from the left ovary incomplete characterized in the absence of contrast, unclear if this could reflect an adnexal cyst or a pericolonic abscess. Consider contrast-enhanced CT versus pelvic ultrasound for further delineation. Assessment and Plan (1) Diverticulitis: Status: Acute Plan This is a 42-year-old female with no pertinent past medical history and not on prescription medications presents to the emergency department for evaluation of left lower quadrant pain. #. Acute uncomplicated sigmoid diverticulitis: Will admit patient for pain control and inability to tolerate p.o. intake. Continue empiric IV antibiotics. IV morphine p.r.n. for pain control. Resuscitating with IV crystalloids. NPO for bowel rest, may try liquid diet in a.m. and advance diet as tolerated. Recommend outpatient colonoscopy in 6-8 weeks after symptom resolution. DVT prophylaxis: None. Patient is ambulatory Full code NPO. Advance as tolerated Admit as inpatient and will require two night minimum hospital stay for IV antibiotics and symptom control Time Spent With Patient Time: Total time managing care of this patient today ____ minutes. Quality Stroke Does the patient have a stroke diagnosis?: No VTE Prior VTE?: No VTE Risk Level:: Medical - low VTE Device Contraindication: Treatment Not Indicated VTE Drug Contraindication: Treatment Not Indicated
--- NOTE | 2022-05-08 21:47 | PHA.MEDREC ---
Pharmacy Consult ? Medication Reconciliation Pharmacy has completed the medication reconciliation.
[2022-05-08] MEDS: 0.9 % Sodium Chloride 1,000 ML 999 ML IV (22:12)
--- NOTE | 2022-05-08 22:55 | PC.NURSE ---
RN-RN report given to Overflow, pt to go to bed 12.
[2022-05-08 23:54] VITALS: BP 109/63; PULSE 75; RESP 18; TEMP 36.8; O2SAT 99
[2022-05-09 00:38] VITALS: RESP 18
[2022-05-09] MEDS: 0.9 % Sodium Chloride Flush 3 ML SYRINGE IVFLUSH ×3 (00:38→16:20)
[2022-05-09] MEDS: Morphine Sulfate 4 MG/ML CARTRIDGE IVPUSH ×3 (00:38→20:29)
[2022-05-09] MEDS: Piperacillin Sodium/Tazobactam 4.5 GM in 0.9 % Sodium Chloride 100 ML IV ×4 (03:32→20:30)
[2022-05-09 06:18] LABS: MANUAL DIFF FLAG NO
[2022-05-09 06:19] LABS: Basophils Percent Auto 0.6 % (0-2); Eosinophils Absolute Auto 0.3 X10*3/uL (0.0-0.4); Eosinophils Percent Auto 4.1 % (0-4); Hematocrit 35.8 % (37.0-47.0); Hemoglobin 11.5 g/dl (12.0-16.0); Imm Gran Abs Auto 0.02 X10*3/uL (0.00-0.03); Imm Gran Pct Auto 0.3 % (0.0-0.4); Lymphocytes Absolute Auto 1.8 X10*3/uL (1.2-4.9); Lymphocytes Percent Auto 26.9 % (20-40); Mean Corpuscular HGB Conc 32.1 g/dl (31.0-35.0); Mean Corpuscular Volume 90.4 fL (80.0-98.0); Mean Platelet Volume 10.1 fL (9.4-12.3); Monocytes Absolute Auto 0.5 X10*3/uL (0.1-1.2); Monocytes Percent Auto 7.2 % (2-11); Neutrophils Absolute Auto 4.1 x10*3/uL (2.0-8.3); Neutrophils Percent Auto 60.9 % (45-73); Platelet Count 169 X10*3/uL (160-400); Red Blood Count 3.96 X10*6/uL (4.20-5.50); Red Cell Distribution Width 13.4 % (11.0-16.0); White Blood Count 6.8 X10*3/uL (4.8-10.8)
[2022-05-09 06:35] LABS: Anion Gap 10 (12-20); Blood Urea Nitrogen 7 mg/dL (9-16); Calcium 8.6 mg/dL (8.4-10.2); Carbon Dioxide 25 mmol/L (22-29); Chloride 109 mmol/L (96-108); Creatinine Clr Calc Pharmacy 86.3; Estimated Glomerular Filt Rate > 60; Glucose Random 88 mg/dL (60-115); Potassium 4.1 mmol/L (3.3-5.1); Sodium 140 mmol/L (135-145)
[2022-05-09] MEDS: Acetaminophen 325 MG TABLET 650 MG PO ×2 (08:39→18:44)
[2022-05-09 09:02] VITALS: BP 107/70; PULSE 68; RESP 16; TEMP 36.3; O2SAT 99
--- NOTE | 2022-05-09 13:52 | HO.PM.IMPN ---
Subjective Subjective Date of Service: 05/09/22 Interval History: Seen in follow-up for acute diverticulitis Interval history: Reports pain is well controlled with morphine. Requesting to drink fluids. Reports left lower quadrant pain radiating to her back. No nausea or vomiting. No diarrhea. Denies melena or hematochezia. Afebrile, vitals otherwise stable. Review of Systems Review of Systems: Yes all other systems are reviewed and are negative Physical Exam Vital Signs: Vital Signs: Last Vital Signs Temp 97.4 F 05/09/22 09:02 Pulse 68 05/09/22 09:02 Resp 16 05/09/22 09:02 BP 107/70 05/09/22 09:02 Pulse Ox 99 05/09/22 09:02 O2 Del Method 05/09/22 09:02 BMI result Body Mass Index 37.0 Constitutional - Awake and Alert, No apparent distress Eyes - PERRLA, EOMI Cardiovascular - S1S2, RRR, No edema Respiratory - Normal lung expansion, Normal respiratory effort, No respiratory distress, CTA bilaterally Gastrointestinal - llq ttp with voluntary guarding, no rebound. ND; +BS; No rebound or guarding Extremities - no calf tenderness bilaterally, no swelling Skin - Warm/Dry Neurological - Alert & oriented x3 Psychological - Appropriate affect Objective Data Active Medications Acetaminophen (Acetaminophen 325 Mg Tablet) 650 mg PO Q6H PRN PRN Reason: Pain, Mild (Pain Scale 1-3) Last Admin: 05/09/22 08:39 Dose: 650 mg Documented By: UZMA Piperacillin Sod/Tazobactam (Sod 4.5 gm/ Sodium Chloride) 100 mls @ 200 mls/hr IV Q6H MAHI Last Infusion: 05/09/22 09:40 Dose: 100 mls/hr Documented By: UZMA Melatonin (Melatonin 3 Mg Tablet) 6 mg PO BEDTIME PRN PRN Reason: Insomnia Morphine Sulfate (Morphine Sulfate 4 Mg/Ml Cartridge) 4 mg IVPUSH Q4H PRN; Protocol PRN Reason: Pain, Severe (Pain Scale 7-10) Last Admin: 05/09/22 08:40 Dose: 4 mg Documented By: UZMA Ondansetron HCl (Ondansetron Hcl 4 Mg/2 Ml Vial) 4 mg IVPUSH Q8H PRN PRN Reason: Nausea and Vomiting Pharmacy Consult (Consult Rx Perform Med Rec) 1 each MISCELLANE ONCE PRN PRN Reason: Consult order Sodium Chloride (0.9 % Sodium Chloride Flush 3 Ml Syringe) [facility] Last Admin: 05/09/22 08:39 Dose: 3 ml Documented By: UZMA Labs 05/09/22 06:12 05/09/22 06:12 Labs: Laboratory Results - last 24 hr 05/08/22 05/08/22 05/08/22 16:50 16:50 20:08 MCV 87.7 MCH 29.0 MCHC 33.1 RDW 13.4 Plt Count 239 MPV 10.5 Immature Gran % (Auto) 0.2 Neut % (Auto) 76.9 H Lymph % (Auto) 15.6 L [place] % (Auto) 5.4 Eos % (Auto) 1.6 Baso % (Auto) 0.3 Lymph # (Auto) 1.7 [place] # (Auto) 0.6 Eos # (Auto) 0.2 Baso # (Auto) 0.0 Abs Immat Gran (auto) 0.02 Absolute Neuts (auto) 8.5 H Absolute Nucleated RBC 0.000 Nucleated RBC % (auto) 0.0 Anion Gap 15 Estim Creat Clear Calc 92.3 Estimated GFR > 60 Random Glucose 94 Lactic Acid Calcium 9.2 Magnesium 2.1 Total Bilirubin 1.6 H AST 14 ALT 8 Alkaline Phosphatase 74 Total Protein 7.3 Albumin 4.1 Beta HCG, Quant < 2 Urine Color Dark Yellow Urine Appearance Clear Urine pH 5.5 Ur Specific [place] 1.025 Urine Protein Trace Urine Glucose (UA) Negative Urine Ketones 15 Urine Blood Trace H Urine Nitrite Negative Ur Leukocyte Esterase Trace H Urine RBC 0-2 Urine WBC 0-5 Ur Squamous Epith Cells 0-2 Urine Bacteria None Seen Hyaline Casts 0-2 05/08/22 05/09/22 05/09/22 20:46 06:12 06:12 MCV 90.4 MCH 29.0 MCHC 32.1 RDW 13.4 Plt Count 169 D MPV 10.1 Immature Gran % (Auto) 0.3 Neut % (Auto) 60.9 Lymph % (Auto) 26.9 [place] % (Auto) 7.2 Eos % (Auto) 4.1 H Baso % (Auto) 0.6 Lymph # (Auto) 1.8 [place] # (Auto) 0.5 Eos # (Auto) 0.3 Baso # (Auto) 0.0 Abs Immat Gran (auto) 0.02 Absolute Neuts (auto) 4.1 Absolute Nucleated RBC 0.000 Nucleated RBC % (auto) 0.0 Anion Gap 10 L Estim Creat Clear Calc 86.3 Estimated GFR > 60 Random Glucose 88 Lactic Acid 0.7 Calcium 8.6 D Magnesium Total Bilirubin AST ALT Alkaline Phosphatase Total Protein Albumin Beta HCG, Quant Urine Color Urine Appearance Urine pH Ur Specific [place] Urine Protein Urine Glucose (UA) Urine Ketones Urine Blood Urine Nitrite Ur Leukocyte Esterase Urine RBC Urine WBC Ur Squamous Epith Cells Urine Bacteria Hyaline Casts Assessment and Plan (1) Diverticulitis: Status: Acute Plan This is a 42-year-old female with no pertinent past medical history and not on prescription medications presents to the emergency department for evaluation of left lower quadrant pain. #Acute sigmoid diverticulitis -Continue zosyn -Morphine for pain control -Advance diet to clears. DC IV fluids -ondansetron p.r.n. for nausea DVT prophylaxis:? compression, ambulatory Full code Patient choirs ongoing inpatient management due to acute diverticulitis for IV antibiotics, pain management, diet advancement. Likely dc home tomorrow Time Spent With Patient Time: Total time managing care of this patient today ____ minutes. Quality Stroke Does the patient have a stroke diagnosis?: No VTE Prior VTE?: No VTE Risk Level:: Medical - low VTE Device Contraindication: Treatment Not Indicated VTE Drug Contraindication: Treatment Not Indicated
[2022-05-09] MEDS: ondansetron HCL 4 MG/2 ML VIAL IVPUSH ×2 (15:39→20:29)
--- NOTE | 2022-05-09 15:50 | PC.NURSE ---
patient's diet was advanced to clear liquids and tolerating fair, some nausea noted and Zofran IVP given.
--- NOTE | 2022-05-09 15:54 | PC.NURSE ---
prepped her antibiotic wrong and had to return antibiotic but threw away as already mixed. should of wasted the antibiotic instead. pharmacy aware.
[2022-05-09 16:00] VITALS: BP 100/56; PULSE 74; RESP 16; TEMP 36.6; O2SAT 98
--- NOTE | 2022-05-09 19:34 | MHC.EDTECH ---
patient is on a clear liquiet diet ,ate 1 jello ,drank 600 ml fluids .
[2022-05-09 20:00] VITALS: BP 108/66; PULSE 72; RESP 16; TEMP 36.7; O2SAT 98
--- NOTE | 2022-05-09 20:28 | PC.NURSE ---
Addendum entered by Sherry Parker RN 05/10/22 06:55: Report given to ERIK Chavez Original Note: Report received from ERIK Hoffman pt alert and oriented resting in bed breathing equally unlabored no signs of acute distress notice
[2022-05-09] MEDS: Melatonin 3 MG TABLET 6 MG PO (20:29)
[2022-05-10] VITALS: BP 91/52; PULSE 66; RESP 18; TEMP 36.7; O2SAT 98
[2022-05-10] MEDS: Piperacillin Sodium/Tazobactam 4.5 GM in 0.9 % Sodium Chloride 100 ML IV ×2 (02:00→09:09)
[2022-05-10 06:29] VITALS: BP 108/64; PULSE 70; RESP 18; TEMP 36.7; O2SAT 94
[2022-05-10] MEDS: 0.9 % Sodium Chloride Flush 3 ML SYRINGE IVFLUSH (07:07)
[2022-05-10 07:14] LABS: MANUAL DIFF FLAG NO
[2022-05-10 07:21] LABS: Basophils Percent Auto 0.6 % (0-2); Eosinophils Absolute Auto 0.2 X10*3/uL (0.0-0.4); Eosinophils Percent Auto 3.8 % (0-4); Hemoglobin 12.2 g/dl (12.0-16.0); Imm Gran Abs Auto 0.03 X10*3/uL (0.00-0.03); Imm Gran Pct Auto 0.5 % (0.0-0.4); Lymphocytes Absolute Auto 1.1 X10*3/uL (1.2-4.9); Lymphocytes Percent Auto 16.6 % (20-40); Mean Corpuscular HGB Conc 32.1 g/dl (31.0-35.0); Mean Corpuscular Hemoglobin 28.6 pg (27.0-33.0); Mean Platelet Volume 10.8 fL (9.4-12.3); Monocytes Absolute Auto 0.3 X10*3/uL (0.1-1.2); Monocytes Percent Auto 4.9 % (2-11); Neutrophils Absolute Auto 4.7 x10*3/uL (2.0-8.3); Neutrophils Percent Auto 73.6 % (45-73); Platelet Count 213 X10*3/uL (160-400); Red Blood Count 4.27 X10*6/uL (4.20-5.50); Red Cell Distribution Width 13.2 % (11.0-16.0); White Blood Count 6.4 X10*3/uL (4.8-10.8)
--- NOTE | 2022-05-10 07:38 | PC.NURSE ---
meal tray provided
[2022-05-10 07:49] LABS: Anion Gap 13 (12-20); Blood Urea Nitrogen 9 mg/dL (9-16); Calcium 8.7 mg/dL (8.4-10.2); Carbon Dioxide 22 mmol/L (22-29); Chloride 106 mmol/L (96-108); Creatinine Clr Calc Pharmacy 87.2; Estimated Glomerular Filt Rate > 60; Glucose Random 75 mg/dL (60-115); Potassium 4.1 mmol/L (3.3-5.1); Sodium 137 mmol/L (135-145)
--- NOTE | 2022-05-10 10:03 | MHC.CM.PN ---
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
--- NOTE | 2022-05-10 10:36 | PC.NURSE ---
Spoke with inpatient MD who states pt to be started on regular diet and discharged around 1300 today.
[2022-05-10 10:58] VITALS: BP 104/61; PULSE 75; RESP 20; TEMP 36.2; O2SAT 95
--- NOTE | 2022-05-10 11:24 | PM.DS ---
DS: Providers Provider Date of Service: 05/10/22 Date of admission: 05/08/22 20:46 Date of discharge: 05/10/22 Primary care physician: Cruz Hill MD Attending physician on admission: Denton Ruiz Attending physician on discharge: Dc [facility] Discharging clinician: Glory Gonzalez DS: Diagnosis Discharge Diagnosis (1) Diverticulitis: Status: Acute DS: Summary Hospital Course Hospital Course: HPI on admission by Dr. Ruiz 05/08/22: Chief Complaint: Abdominal Pain This is a 42-year-old female with no pertinent past medical history and not on prescription medications presents to the emergency department for evaluation of left lower quadrant pain. Patient states she had sudden onset of left lower quadrant pain about 1 day prior to presentation .? It was worse with p.o. intake and associated with significant nausea.? Initially it was intermittent but soon progressed to being constant and without any relieving factors.? Intermittent radiation to the back.? Denies similar complaints in the past.? Admitted about 3 years ago for abdominal discomfort when colonoscopy was done which was apparently normal.? Endorses chills.? She denies fever, chest discomfort, palpitations, shortness of breath, changes in urinary habits In the emergency department, imaging with acute diverticulitis. Hospital Course: Patient admitted for to Medicine for management of acute diverticulitis due to intractable pain and p.o. intolerance. There was no evidence of abscess or perforation on CT of the abdomen/pelvis. She was treated with IV Zosyn with improvement in pain. She was initially unable to tolerate clears but was able to eventually advanced diet. Pain was initially managed with IV morphine but this is now more controlled. Still with intermittent LLQ pain with ambulation or palpation but tolerable. Throughout stay, there is no leukocytosis, vital signs were stable. She will be discharged with Augmentin to complete 10 day course of antibiotic therapy. She is given referral to follow up outpatient with Gastroenterology to assess need for colonoscopy. Advised to follow-up with PCP soon. Status at Discharge Functional status at discharge: independent ambulation Overall status at discharge: patient is progressing back to baseline Time Spent with Patient Time attestation: Total time managing care of this patient today ____ minutes. Discharge coordination time: Greater than 30 minutes Quality: Safe Use of Opioids Does Pt have an Active Cancer Diagnosis on the Problem List?: No Quality: Stroke Does the patient have a stroke diagnosis?: No Physical Exam Vital Signs: Vital Signs: Last Vital Signs Temp 97.2 F 05/10/22 10:58 Pulse 75 05/10/22 10:58 Resp 20 05/10/22 10:58 BP 104/61 05/10/22 10:58 Pulse Ox 95 05/10/22 10:58 O2 Del Method 05/10/22 10:58 BMI result Body Mass Index 37.0 Constitutional - Awake and Alert, No apparent distress Eyes - PERRLA, EOMI Cardiovascular - S1S2, RRR, No edema Respiratory - Normal lung expansion, Normal respiratory effort, No respiratory distress, CTA bilaterally Gastrointestinal - LLQ with guarding or rebound. ND; +BS Extremities - no calf tenderness bilaterally, no swelling Skin - Warm/Dry Neurological - Alert & oriented x3 Psychological - Appropriate affect DS: Data Data Completed and Pending Labs on day of discharge: Laboratory Results - last 24 hr 05/10/22 05/10/22 06:38 06:38 WBC 6.4 RBC 4.27 Hgb 12.2 Hct 38.0 MCV 89.0 MCH 28.6 MCHC 32.1 RDW 13.2 Plt Count 213 D MPV 10.8 Immature Gran % (Auto) 0.5 H Neut % (Auto) 73.6 H Lymph % (Auto) 16.6 L [place] % (Auto) 4.9 Eos % (Auto) 3.8 Baso % (Auto) 0.6 Lymph # (Auto) 1.1 L [place] # (Auto) 0.3 Eos # (Auto) 0.2 Baso # (Auto) 0.0 Abs Immat Gran (auto) 0.03 Absolute Neuts (auto) 4.7 Absolute Nucleated RBC 0.000 Nucleated RBC % (auto) 0.0 Sodium 137 Potassium 4.1 Chloride 106 Carbon Dioxide 22 Anion Gap 13 BUN 9 Creatinine 0.91 Estim Creat Clear Calc 87.2 Estimated GFR > 60 Random Glucose 75 Calcium 8.7 Preliminary micro results at discharge 05/08/22 21:00 Blood Culture - Preliminary Blood - Venous No growth after 24 hours. 05/08/22 20:46 Blood Culture - Preliminary Blood - Venous No growth after 24 hours. Discharge Plan Discharge Anticipated Discharge Date/Time: 05/10/22 11:15 Patient Disposition: Home, Self-Care Discharge Diagnosis: acute diverticulitis Referrals: Cruz Hill MD [Primary Care Provider] - 1 Week Ed Orellana [Physician] - 1 Week Discharge Medications: New amoxicillin-pot clavulanate 875-125 mg tablet 1 tab PO BID Qty: 17 0RF Rx Instructions: Take with food ondansetron 4 mg tablet,disintegrating 4 mg PO Q8H PRN (Reason: nausea and vomiting) Qty: 10 0RF oxycodone 5 mg tablet 5 mg PO TID PRN (Reason: severe pain (scale score 7-10)) Qty: 5 0RF Discharge Orders: Discharge Order (Routine); Ordered 05/10/22 Ordered By: Glory Gonzalez Diet: Advance to usual diet Activity on Discharge: As tolerated Stand Alone Forms: Patient Portal Discharge page Care Plan Goals: Continue antibiotics to complete treatment for acute diverticulitis Advanced diet as tolerated Health Concerns: Acute diverticulitis Plan of Treatment: Acute diverticulitis -CT of the abdomen/pelvis showed a diverticulitis of the sigmoid colon without complications such as abscess or perforation. However given or intractable pain and oral intolerance, you were admitted to the hospital for IV antibiotics -you were treated with IV Zosyn. You will be discharged with oral Augmentin 875 mg twice daily for 17 doses to complete antibiotic treatment for diverticulitis. He should take this medication with food and probiotics as it can cause diarrhea. NEXT DOSE DUE IS BETWEEN 4-5 P.M. -use ondansetron as needed for nausea -Your pain levels have greatly improved. You can use tylenol or ibuprofen as needed. Will give short course of oxycodone only if needed for severe pain -advanced diet as tolerated -follow-up with PCP. You may need colonoscopy outpatient, so referral has been placed to gastroenterology Assessment: As above Discharge Date/Time: 05/10/22 13:01
--- NOTE | 2022-05-10 11:27 | PC.NURSE ---
Inpatient physician stating she will cancel covid swab order as pt will be d/c'd
--- NOTE | 2022-05-10 11:29 | PC.NURSE ---
Pt ate crackers without complication
== END 2022-05-10 13:01 | disposition home or self-care (01) | DRG 244 ==
LOC: HO.ED 20:53 → HO.EDOVER 21:10
PROVIDERS: Nurse Practitioner Family; Physician Assistant Medical; Admitting Provider Student in an Organized Health Care Education/Training Program; Emergency Provider Internal Medicine; PCP Internal Medicine; Visit Provider Physician Assistant
DX: K57.32 Diverticulitis of large intestine without perforation or abscess without bleeding (principal)
CPT/HCPCS: 36415; 74176; 74177; 80048; 80053; 81001; 83605; 83735; 84702; 85025; 87040; 99221; 99285; J2270; J2405; J2543; Q9967

== ENCOUNTER 2022-09-08 16:05 | Outpatient (REF) | payer BC, SELFPAY ==
[2022-09-10 22:53] LABS: Immunoglobulin A 197 mg/dL (47-310)
[2022-09-11 08:59] LABS: Gliadin Deamidated IgA Ab <1.0 U/mL; Gliadin Deamidated IgG Ab <1.0 U/mL; Transglutaminase Ab IgG <1.0 U/mL; Transglutaminase IgA <1.0 U/mL
[2022-09-12 13:33] LABS: Endomysial IgA Antibody Negative (Negative)
== END 2022-09-08 16:06 | disposition home or self-care (01) ==
LOC: HO.LAB 16:05
PROVIDERS: PCP Internal Medicine; Visit Provider Internal Medicine
DX: K58.1 Irritable bowel syndrome with constipation (principal)
CPT/HCPCS: 36415; 82784; 86231; 86258; 86364

== ENCOUNTER 2022-09-11 10:42 | Outpatient (REF) | payer BC, SELFPAY ==
[2022-09-11 10:47] LABS: MANUAL DIFF FLAG NO
[2022-09-11 10:55] LABS: Basophils Absolute Auto 0.1 X10*3/uL (0.0-0.2); Basophils Percent Auto 0.8 % (0-2); Eosinophils Absolute Auto 0.2 X10*3/uL (0.0-0.4); Eosinophils Percent Auto 3.2 % (0-4); Hematocrit 42.2 % (37.0-47.0); Hemoglobin 13.4 g/dl (12.0-16.0); Imm Gran Abs Auto 0.01 X10*3/uL (0.00-0.03); Imm Gran Pct Auto 0.2 % (0.0-0.4); Lymphocytes Absolute Auto 1.2 X10*3/uL (1.2-4.9); Lymphocytes Percent Auto 19.2 % (20-40); Mean Corpuscular HGB Conc 31.8 g/dl (31.0-35.0); Mean Corpuscular Hemoglobin 28.3 pg (27.0-33.0); Mean Corpuscular Volume 89.2 fL (80.0-98.0); Mean Platelet Volume 11.8 fL (9.4-12.3); Monocytes Absolute Auto 0.3 X10*3/uL (0.1-1.2); Neutrophils Absolute Auto 4.5 x10*3/uL (2.0-8.3); Neutrophils Percent Auto 71.6 % (45-73); Platelet Count 224 X10*3/uL (160-400); Red Blood Count 4.73 X10*6/uL (4.20-5.50); Red Cell Distribution Width 13.4 % (11.0-16.0); White Blood Count 6.2 X10*3/uL (4.8-10.8)
[2022-09-11 11:02] LABS: Alanine Aminotransferase 7 U/L (0-31); Albumin Level 3.8 g/dL (3.5-5.0); Alkaline Phosphatase 57 U/L (39-117); Anion Gap 12 (12-20); Aspartate Amino Transferase 19 U/L (5-31); Bilirubin Total 0.9 mg/dL (0.0-1.0); Blood Urea Nitrogen 7 mg/dL (9-16); Calcium 9.3 mg/dL (8.4-10.2); Carbon Dioxide 23 mmol/L (22-29); Chloride 107 mmol/L (96-108); Cholesterol 199 mg/dL; Estimated Glomerular Filt Rate > 60; Glucose Fasting 107 mg/dL (60-99); HDL Cholesterol 37 mg/dL; LDL Cholesterol Calculated 123 mg/dl; Potassium 4.1 mmol/L (3.3-5.1); Sodium 138 mmol/L (135-145); Total Protein 6.9 g/dL (6.5-8.0); Triglycerides 198 mg/dL
[2022-09-11 11:05] LABS: Appearance Urine Cloudy; Color Urine Dark Yellow; Glucose Urine UA Negative (Negative); Leukocyte Esterase Urine Negative (Negative); Nitrite Urine Negative (Negative); PH 5.5 (5.0-9.0); Specific Gravity - Urine >= 1.030 (1.005-1.025); UMIC TRIGGER UACC YES; Urine Blood Negative (Negative); Urine Ketones Trace mg/dL (Negative); Urine Protein 30 (1+) mg/dL (Neg-Trace)
[2022-09-11 11:21] LABS: Bacteria Urine None Seen (None Seen); Calcium Oxalate Crystals Urine Present; Hyaline Casts Urine 0-2 /LPF (0-2); RBC Urine 0-2 /HPF (0-2); Squamous Epithelial Cell Urine >20 /HPF (0-2); WBC Urine 0-5 /HPF (0-5)
== END 2022-09-11 10:43 | disposition home or self-care (01) ==
LOC: HO.LNP 10:42
PROVIDERS: Visit Provider Internal Medicine
DX: Z00.00 Encounter for general adult medical examination without abnormal findings (principal); K57.90 Diverticulosis of intestine, part unspecified, without perforation or abscess without bleeding; K58.9 Irritable bowel syndrome, unspecified; E66.9 Obesity, unspecified
CPT/HCPCS: 80053; 80061; 81001; 85025

== ENCOUNTER 2023-01-19 12:56 | Emergency (ER) | payer BC, SELFPAY ==
[2023-01-19 13:08] VITALS: BP 131/79; PULSE 79; RESP 16; TEMP 36.6; O2SAT 100; BMI 33.8
[2023-01-19] MEDS: Famotidine/PF 20 MG/2 ML VIAL IVPUSH (13:37)
--- NOTE | 2023-01-19 13:43 | PC.NURSE ---
pt changed into hospital attire, residential monitor applied NSR on monitor, spO2 97-100% RA pt speaking in full complete sentences- no increased work of breathing noted
[2023-01-19 13:44] VITALS: BP 119/66; PULSE 82; O2SAT 98
--- NOTE | 2023-01-19 13:44 | PC.NURSE ---
pt medicated per MAR
--- NOTE | 2023-01-19 13:57 | ED_ITS ---
HPI - Allergic Reaction General Chief complaint: Allergic Reaction Stated complaint: SWELLING/SOB S/P EATING SPIANCHE/EGG WHITE Time Seen by Provider: 01/19/23 13:02 Source: patient and EMS Mode of arrival: EMS Limitations: no limitations History of Present Illness HPI narrative: 42 yo female with no significant medical history presents to the ER via EMS for evaluation of an allergic reaction that started around 11:30 this morning after eating an egg white sandwich from [employer] w/ spinach and tomato. She states she developed acute onset of swelling on the left side of her face and the sensation of a lump in her throat. It felt hard to swallow. She was seen by the school nurse and EpiPen was given 0.3mg. EMS administered 125 mg solumedrol and 50 mg benadryl. She reports improvement since receiving those medications. No history of allergic reactions in the past. MD complaint: allergic reaction and facial swelling Onset (ago): hour(s) Exposure: unknown Symptoms: facial swelling Severity: moderate Treatment prior to arrival: benadryl, epinephrine and steroids Previous Allergic Reaction History: none Related Data Previous Rx's Medication Instructions Recorded amoxicillin 875 mg-potassium 1 tab PO BID #17 tabs 05/10/22 clavulanate 125 mg tablet ondansetron 4 mg disintegrating 4 mg PO Q8H PRN nausea and 05/10/22 tablet vomiting #10 tabs oxycodone 5 mg tablet 5 mg PO TID PRN severe pain (scale 05/10/22 score 7-10) #5 tabs epinephrine 0.3 mg/0.3 mL 0.3 mg (0.3 mL) IM Q4H PRN 01/19/23 injection, auto-injector (EpiPen anaphylaxis #2 ea 2-Arnaldo) Allergies Allergy/AdvReac Type Severity Reaction Status Date / Time cat dander [cats] Allergy Rash Verified 01/19/23 13:48 Review of Systems Review of Systems: Yes all other systems are reviewed and are negative [facility] Past Medical History Surgical History Previous section S/P ACL repair Social History Social History Alcohol intake: current Alcohol intake frequency: a few times a month Alcohol type: beer Patient Tobacco Use Status: Never used Tobacco Substance Use Type: Marijuana Advance Directives: No Advance Directives Information Provided: No service: No Current occupational status: employed Physical Exam ED Vital Signs: Vital Signs - 24 hr 01/19/23 13:08 01/19/23 14:17 Temperature 98 F Pulse Rate 79 78 Respiratory Rate 16 18 Blood Pressure 131/79 Pulse Oximetry 100 100 Oxygen Delivery Method Room Air Room Air BMI result Body Mass Index 33.8 Appearance: Alert. Oriented X3. No acute distress. Head: normocephalic, atraumatic. mild swelling below left eye w/ puffiness. Eyes: Pupils equal, round and reactive to light. ENT: Pharynx normal. No tonsillar swelling or exudate. no swelling of lips or tongue, normal voice. no posterior pharyngeal swelling Neck: Normal inspection. Neck supple. CVS: Normal heart rate and rhythm. Pulses normal. Respiratory: No respiratory distress. Breath sounds normal. Skin: Skin warm and dry. Normal skin color. Normal skin turgor. No rashes. Extremities: No lower extremity edema. No joint swelling. Neuro/psych: Oriented X 3. No motor deficit. No sensory deficit. CN II-XII intact. Normal speech and cognition. Medications Administered Discontinued Medications Generic Name Dose Route Start Last Admin Trade Name Freq PRN Reason Stop Dose Admin Famotidine 20 mg 01/19/23 13:02 01/19/23 13:37 Famotidine/Pf 20 Mg/2 Ml Vial IVPUSH 01/19/23 13:03 20 mg ONCE ONE Administration Medical Decision Making Medical Decision Making MDM Narrative: 42 yo female presenting with allergic reaction, possible food related? no history of the same. s/p epi, medrol and benadryl. pepcid given here mild left periorbital swelling persists but overall improved patient monitored in the ER for >2 hours. symptoms continue to improve. at this time patient is stable for discharge home. epipen rx given encouraged f/u with PCP and an maintenance service dispatcher. Differential Diagnosis Differential Diagnoses: The differential diagnosis associated with the presentation includes anaphylaxis, allergic reaction, periorbital cellulitis Admission/Observation Consideration of admission/observation: Escalation of care including admission/observation considered External Record Review External record reviewed: Prior outpatient labs Prescription Management I considered prescription management with: Other (epinepherine) Critical Care Time Critical Care Time Critical Care Time: No Discharge Plan Discharge Clinical Impression: Allergic reaction Qualifiers: Encounter type: initial encounter Qualified Code(s): T78.40XA - Allergy, unspecified, initial encounter Patient Disposition: Home, Self-Care Instructions: General Allergic Reaction (ED), Allergy Testing (ED) Additional Instructions: take 50 mg of benadryl tonight before bed recommend continuing zyrtec starting tomorrow for the next 3 days recommend following up with your PCP as well as an medical communication specialist If you develop new or worsening symptoms call 911 or come back to the ER for further evaluation. Prescriptions: New epinephrine [EpiPen 2-Arnaldo] 0.3 mg/0.3 mL auto-injector 0.3 mg IM Q4H PRN (Reason: anaphylaxis) Qty: 2 0RF No Action amoxicillin-pot clavulanate 875-125 mg tablet 1 tab PO BID Qty: 17 0RF Rx Instructions: Take with food ondansetron 4 mg tablet,disintegrating 4 mg PO Q8H PRN (Reason: nausea and vomiting) Qty: 10 0RF oxycodone 5 mg tablet 5 mg PO TID PRN (Reason: severe pain (scale score 7-10)) Qty: 5 0RF Referrals: Cruz Hill MD [Primary Care Provider] - Interventions: ED Discharge Assessment Last Done: 01/19/23 15:52 Discharge Date/Time: 01/19/23 15:52
[2023-01-19 14:17] VITALS: PULSE 78; RESP 18; O2SAT 100
--- NOTE | 2023-01-19 14:18 | PC.NURSE ---
pt oob to br x2 no dyspnea on excerption noted. vss, call banda within reach - care ongoing
== END 2023-01-19 15:52 | disposition home or self-care (01) ==
PROVIDERS: Emergency Provider Emergency Medicine Emergency Medical Services; PCP Internal Medicine
DX: T78.40XA Allergy, unspecified, initial encounter (principal); X58.XXXA Exposure to other specified factors, initial encounter; F12.90 Cannabis use, unspecified, uncomplicated
CPT/HCPCS: 96374; 99284

== ENCOUNTER 2023-03-02 10:42 | Outpatient (REF) | payer BC, SELFPAY | END 2023-03-02 10:43 | disposition home or self-care (01) | LOC: HO.10HDL 10:42 | PROVIDERS: Visit Provider Otolaryngology | DX: T78.2XXA Anaphylactic shock, unspecified, initial encounter (principal) | CPT/HCPCS: 36415; 82785; 86003 ==

== ENCOUNTER 2023-09-13 11:03 | Outpatient (REF) | payer BC, SELFPAY ==
[2023-09-13 11:06] LABS: MANUAL DIFF FLAG NO
[2023-09-13 12:15] LABS: Basophils Percent Auto 0.7 % (0-2); Eosinophils Absolute Auto 0.1 X10*3/uL (0.0-0.4); Eosinophils Percent Auto 2.4 % (0-4); Hematocrit 41.3 % (37.0-47.0); Hemoglobin 13.5 g/dl (12.0-16.0); Imm Gran Abs Auto 0.01 X10*3/uL (0.00-0.03); Imm Gran Pct Auto 0.2 % (0.0-0.4); Lymphocytes Absolute Auto 1.5 X10*3/uL (1.2-4.9); Lymphocytes Percent Auto 28.1 % (20-40); Mean Corpuscular HGB Conc 32.7 g/dl (31.0-35.0); Mean Corpuscular Hemoglobin 29.6 pg (27.0-33.0); Mean Corpuscular Volume 90.6 fL (80.0-98.0); Mean Platelet Volume 11.5 fL (9.4-12.3); Monocytes Absolute Auto 0.4 X10*3/uL (0.1-1.2); Monocytes Percent Auto 6.7 % (2-11); Neutrophils Absolute Auto 3.3 x10*3/uL (2.0-8.3); Neutrophils Percent Auto 61.9 % (45-73); Platelet Count 205 X10*3/uL (160-400); Red Blood Count 4.56 X10*6/uL (4.20-5.50); Red Cell Distribution Width 13.4 % (11.0-16.0); White Blood Count 5.4 X10*3/uL (4.8-10.8)
[2023-09-13 12:18] LABS: Color Urine Yellow; Glucose Urine UA Negative (Negative); Leukocyte Esterase Urine Negative (Negative); Nitrite Urine Negative (Negative); Specific Gravity - Urine >= 1.030 (1.005-1.025); UMIC TRIGGER UACC YES; Urine Blood Trace (Negative); Urine Ketones Trace mg/dL (Negative); Urine Protein Trace mg/dL (Neg-Trace)
[2023-09-13 12:25] LABS: Appearance Urine Hazy
[2023-09-13 12:29] LABS: Alanine Aminotransferase 9 U/L (0-31); Albumin Level 3.9 g/dL (3.5-5.0); Alkaline Phosphatase 47 U/L (39-117); Anion Gap 8 (12-20); Aspartate Amino Transferase 24 U/L (5-31); Bilirubin Total 0.6 mg/dL (0.0-1.0); Blood Urea Nitrogen 9 mg/dL (9-16); Calcium 9.4 mg/dL (8.4-10.2); Carbon Dioxide 25 mmol/L (22-29); Chloride 110 mmol/L (96-108); Cholesterol 220 mg/dL (<200); Estimated Glomerular Filt Rate > 60; Glucose Fasting 93 mg/dL (60-99); HDL Cholesterol 51 mg/dL (>40); LDL Cholesterol Calculated 135 mg/dL (<100); Potassium 4.2 mmol/L (3.3-5.1); Sodium 139 mmol/L (135-145); Total Protein 7.2 g/dL (6.5-8.0); Triglycerides 171 mg/dL (<150)
[2023-09-13 13:17] LABS: Bacteria Urine 2+ (None Seen); Calcium Oxalate Crystals Urine Present; Hyaline Casts Urine 0-2 /LPF (0-2); RBC Urine 0-2 /HPF (0-2); WBC Urine 0-5 /HPF (0-5)
== END 2023-09-13 11:04 | disposition home or self-care (01) ==
LOC: HO.LNP 11:03
PROVIDERS: Visit Provider Internal Medicine
DX: Z00.00 Encounter for general adult medical examination without abnormal findings (principal)
CPT/HCPCS: 80053; 80061; 81001; 85025

== ENCOUNTER 2024-04-10 07:58 | Outpatient (REF) | payer BC, SELFPAY ==
--- NOTE | ~2024-04-10 | MM_ITS ---
EXAMINATION: MM SCREENING DIGITAL BREAST TOMOSYNTHESIS, BILATERAL CLINICAL INFORMATION: Screening. Asymptomatic. COMPARISON: Mammography: Baseline. TECHNIQUE: Digital breast mammography with tomosynthesis is performed in both the craniocaudal and mediolateral oblique views along with computer-aided detection (CAD). FINDINGS: The breasts are heterogeneously dense, which may obscure small masses (ACR BI-RADS breast composition Category c). Bilateral reduction mammoplasty. There are no significant masses, abnormal calcifications, or other abnormalities. MM/MM tomosynthesis screening BI IMPRESSION: No mammographic evidence of malignancy. ASSESSMENT: BI-RADS BI-RADS 2 - Benign Findings RECOMMENDATION: Routine annual mammography screening. 1 year F/U This examination should not preclude the clinical evaluation of a suspicious palpable abnormality. This patient's information was entered into a reminder system with a target due date for their next mammogram. Electronically signed by: Candy Pina DO 04/16/2024 05:49 PM EMILY
== END 2024-04-10 07:59 | disposition home or self-care (01) ==
LOC: HO.MAMMO 07:58
PROVIDERS: PCP Internal Medicine; Visit Provider Internal Medicine
DX: Z12.31 Encounter for screening mammogram for malignant neoplasm of breast (principal)
CPT/HCPCS: 77063; 77067

== ENCOUNTER → 2024-04-10 08:15 | Outpatient (BNV) | payer BC, SELFPAY | PROVIDERS: PCP Internal Medicine; Visit Provider Internal Medicine | DX: Z12.31 Encounter for screening mammogram for malignant neoplasm of breast (principal) | CPT/HCPCS: 77063; 77067 ==

== ENCOUNTER 2024-04-16 20:07 | Emergency (ER) | payer BC, SELFPAY ==
--- NOTE | ~2024-04-16 | US_ITS ---
CLINICAL HISTORY: right ABD pain, nausea, vomiting US abdomen limited Comparison: None Findings: The visualized pancreas is normal. The aorta and inferior vena cava are normal caliber. The liver is normal in size and echotexture. There is no intrahepatic bile duct dilatation. The common duct is 5 mm in diameter. The gallbladder is significant for small echogenic structure in the region of the gallbladder neck without evidence of shadowing perhaps representing a small polyp.. There is no sonographic Talavera sign. The main portal vein is antegrade. The right kidney is 10.4 cm in length. No ascites. IMPRESSION: Possible small polyp gallbladder neck. Otherwise unremarkable examination. This document has been electronically signed by: Mani Kumari MD on 04/16/2024 22:20:52
--- NOTE | ~2024-04-16 | CT_ITS ---
CLINICAL HISTORY: right flank CT abdomen and pelvis without contrast Comparison: CT of the abdomen and pelvis from 05/08/2022 Findings: Mild bibasilar atelectasis. No obstructing stone of either kidney or either ureter. Gallbladder wall thickening is nonspecific and may be accentuated by contraction of the gallbladder. Gallbladder is not further characterize by noncontrast CT. Adrenal glands are unchanged with 1.5 cm splenule favored adjacent to left adrenal gland. Mild volume loss of the pancreas again noted. Spleen is nonenlarged. Small mesenteric and periaortic lymph nodes are nonspecific and may be reactive. No small bowel obstruction. Severe stool burden is present, including the cecum. Imaged appendix is retrocecal, gas-filled, and nondilated. Uterus is anteverted. No adnexal soft tissue mass by noncontrast CT. Urinary bladder is unremarkable. Gas in the pelvis is related to tampon in place. Subcutaneous edema is noted. No definite osseous change in the icxby-wl-mqno. IMPRESSION: 1. No obstructing stone in either kidney or either ureter. 2. Mild wall thickening of the gallbladder by CT. 3. Severe stool burden. No small bowel obstruction. This document has been electronically signed by: Shlomo Can MD on 04/17/2024 01:14:56
[2024-04-16 20:09] VITALS: BP 123/81; PULSE 86; RESP 20; TEMP 36.6; O2SAT 100; BMI 34.5
--- NOTE | 2024-04-16 20:09 | ED_ITS ---
HPI - General Adult General Chief complaint: Abdominal Pain Stated complaint: R sided abd pain Time Seen by Provider: 04/16/24 23:41 Source: patient Limitations: no limitations History of Present Illness ED Provider: Jolene Anguiano PA-C HPI narrative: 44-year-old female with a history of obesity and diverticulitis presents with the abdominal pain times 12 days. Patient states she has been having abdominal discomfort for an extended period of time. Pain primarily right-sided over mid abdomen with radiation to the back at times. The pain fluctuates in intensity, becoming severe at times, then subsiding. When the pain becomes severe, the patient becomes nauseous and vomits at times. Denies dysuria, hematuria, history of kidney stones or diarrhea. Denies fever. Denies sick contacts with the same symptoms. Related Data Previous Rx's ?Medication ?Instructions ?Recorded amoxicillin 875 mg-potassium 1 tab PO BID #17 tabs 05/10/22 clavulanate 125 mg tablet ondansetron 4 mg disintegrating 4 mg PO Q8H PRN nausea and 05/10/22 tablet vomiting #10 tabs oxycodone 5 mg tablet 5 mg PO TID PRN severe pain (scale 05/10/22 score 7-10) #5 tabs epinephrine 0.3 mg/0.3 mL 0.3 mg (0.3 mL) IM Q4H PRN 01/19/23 injection, auto-injector (EpiPen anaphylaxis #2 ea 2-Arnaldo) Allergies Allergy/AdvReac Type Severity Reaction Status Date / Time cat dander [cats] Allergy Rash Verified 04/16/24 20:11 Review of Systems 2 Review of Systems: Yes all other systems are reviewed and are negative Constitutional: Constitutional: Denies fatigue and Denies fever(s) Cardiovascular: Cardiovascular: Denies chest pain and Denies dyspnea Respiratory: Respiratory: Denies cough and Denies dyspnea Gastrointestinal: Gastrointestinal: Reports abdominal pain, Denies diarrhea, Reports nausea and Reports vomiting Genitourinary: Genitourinary: Denies hematuria and Denies dysuria Musculoskeletal: Musculoskeletal: Denies back pain Endocrine: Endocrine: Denies fatigue PMF Past Medical History Attestation statement: The following information was validated with the patient. Surgical History Previous section S/P ACL repair Social History Social History Alcohol intake: current Alcohol intake frequency: a few times a month Alcohol type: beer Patient Tobacco Use Status: Never used Tobacco Substance Use Type: Marijuana Advance Directives: No Advance Directives Information Provided: Yes Do you have a plan to hurt others: No Plan service: No Current occupational status: employed Physical Exam ED Vital Signs: Vital Signs - 24 hr 04/16/24 20:09 04/17/24 00:03 Temperature 97.9 F 97.8 F Pulse Rate 86 76 Respiratory Rate 20 16 Blood Pressure 123/81 133/87 Pulse Oximetry 100 100 Oxygen Delivery Method Room Air Room Air BMI result Body Mass Index 34.5 Const Other: Alert, appears uncomfortable Orientation/consciousness: patient oriented x3 Resp Effort & Inspection: normal respiratory effort Cardio Other: Normal peripheral perfusion GI Other: Abdomen is soft, obese, nondistended, generalized tenderness to palpation without guarding, no focal regions of pain noted on exam Skin Other: Warm dry no rash Neuro General: patient oriented x3, no focal motor deficits and CN's II-XI intact bilaterally Psych Other: Cooperative Course Course Course Narrative: This is an RME performed by Rao Tai CNP: Additional HPI, ROS, PE not included below will be deferred to primary provider. Patient is a 44-year-old female presents emergency department for evaluation, Endorsing severe abdominal pain from the epigastric radiating to the right upper quadrant with associated nausea and vomiting. Reports it has been intermittent over the past 12 days. Admits to a history of diverticulitis, however this is different than what she has typically experienced in the past. Denies genitourinary symptoms. Denies fevers or chills. Plan: Serum labs, urinalysis, hCG, ABD ultrasound Medications Administered Discontinued Medications Generic Name Dose Route Start Last Admin Trade Name Freq PRN Reason Stop Dose Admin Famotidine 20 mg 04/16/24 23:43 04/17/24 00:15 Famotidine/Pf 20 Mg/2 Ml Vial IVPUSH 04/16/24 23:44 20 mg ONCE ONE Administration Sodium Chloride 1,000 mls @ 999 mls/hr 04/16/24 23:45 04/17/24 00:15 Ns IV 04/17/24 00:45 999 mls/hr .Q1H1M MAHI Administration Ketorolac Tromethamine 15 mg 04/17/24 00:04 04/17/24 00:15 Ketorolac Tromethamine 15 Mg/Ml Vial IVPUSH 04/17/24 00:05 15 mg ONCE ONE Administration Ondansetron HCl 4 mg 04/16/24 23:43 04/17/24 00:15 Ondansetron Hcl 4 Mg/2 Ml Vial IVPUSH 04/16/24 23:44 4 mg ONCE ONE Administration Sucralfate 1 gm 04/16/24 23:43 04/17/24 00:15 Sucralfate Oral Suspension 1 Gm/10 Ml Oral.Susp PO 04/16/24 23:44 1 gm ONCE ONE Administration Medical Decision Making Medical Decision Making MDM Narrative: 44-year-old female with a history of obesity and diverticulitis presents with the abdominal pain times 12 days. Patient states she has been having abdominal discomfort for an extended period of time. Pain primarily right-sided over mid abdomen with radiation to the back at times. The pain fluctuates in intensity, becoming severe at times, then subsiding. When the pain becomes severe, the patient becomes nauseous and vomits at times. Denies dysuria, hematuria, history of kidney stones or diarrhea. Denies fever. Denies sick contacts with the same symptoms. Problem: Obesity and diverticulitis History: Per patient I have considered the following differential diagnoses: Cholecystitis, biliary colic, gastritis, appendicitis, renal colic Plan: A portion of the patient's assessment began from triage, screening labs including LFTs lipase and an ultrasound of the right upper quadrant were obtained, no acute gallbladder pathology identified, she does have elevation in LFTs. Given the colicky nature of her discomfort, I am considering potential renal colic, she did provide a urine sample there is a small amount of hematuria. We will obtain a CT scan. Giving antiemetic Toradol and fluid. Thought about potential segment diverticulitis, however she is not having diarrhea, and she has had symptoms for an extended period of time. I have independently reviewed the following tests: Labs: No leukocytosis, not anemic, no electrolyte abnormality, T bili 1.2 AST 228, ALT 48, lipase 33 CT abdomen and pelvis: IMPRESSION: 1. No obstructing stone in either kidney or either ureter. 2. Mild wall thickening of the gallbladder by CT. 3. Severe stool burden. No small bowel obstruction. This document has been electronically signed by: Shlomo Can MD on 04/17/2024 01:14:56 Lab Data 04/16/24 20:32 04/16/24 20:32 Labs: Lab Results 04/16/24 04/16/24 Range/Units 20:32 20:39 WBC 7.0 (4.8-10.8) X10*3/uL RBC 4.64 (4.20-5.50) X10*6/uL Hgb 13.8 (12.0-16.0) g/dl Hct 40.3 (37.0-47.0) % MCV 86.9 (80.0-98.0) fL MCH 29.7 (27.0-33.0) pg MCHC 34.2 (31.0-35.0) g/dl RDW 13.2 (11.0-16.0) % Plt Count 222 (160-400) X10*3/uL MPV 10.8 (9.4-12.3) fL Immature Gran % (Auto) 0.1 (0.0-0.4) % Neut % (Auto) 67.0 (45-73) % Lymph % (Auto) 23.9 (20-40) % [place] % (Auto) 6.4 (2-11) % Eos % (Auto) 2.0 (0-4) % Baso % (Auto) 0.6 (0-2) % Lymph # (Auto) 1.7 (1.2-4.9) X10*3/uL [place] # (Auto) 0.5 (0.1-1.2) X10*3/uL Eos # (Auto) 0.1 (0.0-0.4) X10*3/uL Baso # (Auto) 0.0 (0.0-0.2) X10*3/uL Abs Immat Gran (auto) 0.01 (0.00-0.03) X10*3/uL Absolute Neuts (auto) 4.7 (2.0-8.3) x10*3/uL Absolute Nucleated RBC 0.000 (0.0-0.012) X10*3/uL Nucleated RBC % (auto) 0.0 (0.0-0.2) /100WBC ESR 11 (0-20) MM/HR Sodium 141 (135-145) mmol/L Potassium 3.9 (3.3-5.1) mmol/L Chloride 111 H (96-108) mmol/L Carbon Dioxide 23 (22-29) mmol/L Anion Gap 11 L (12-20) BUN 11 (9-16) mg/dL Creatinine 0.93 (0.5-1.4) mg/dL Estim Creat Clear Calc 80.6 Estimated GFR > 60 Random Glucose 117 H (60-115) mg/dL Calcium 9.0 (8.4-10.2) mg/dL Magnesium 1.9 (1.6-2.6) mg/dL Total Bilirubin 1.2 H (0.0-1.0) mg/dL AST 228 H (5-31) U/L ALT 48 H (0-31) U/L Alkaline Phosphatase 84 (39-117) U/L C-Reactive Protein 0.31 (< or = 0.50) mg/dL Total Protein 7.3 (6.5-8.0) g/dL Albumin 4.0 (3.5-5.0) g/dL Lipase 33 (8-78) U/L Urine Color Dark Yellow Urine Appearance Clear Urine pH 6.0 (5.0-9.0) Ur Specific [place] >= 1.030 H (1.005-1.025) Urine Protein Trace (Neg-Trace) mg/dL Urine Glucose (UA) Negative (Negative) mg/dL Urine Ketones Trace (Negative) mg/dL Urine Blood Small (1+) H (Negative) Urine Nitrite Negative (Negative) Ur Leukocyte Esterase Trace H (Negative) Urine RBC 0-2 (0-2) /HPF Urine WBC 0-5 (0-5) /HPF Ur Squamous Epith Cells 6-10 (0-2) /HPF Urine Bacteria None Seen (None Seen) Hyaline Casts 0-2 (0-2) /LPF Urine Test NEGATIVE (NEGATIVE) Discharge Plan Discharge Clinical Impression: Constipation Patient Disposition: Home, Self-Care Instructions: Constipation (ED) Additional Instructions: All of your screening labs were normal, the CT scan revealed that you are significantly constipated. See home care instructions. You can start using an over the counter stool softener such as Colace daily. You should also use [id number] MiraLax; it can be taken hourly until you begin having multiple large volume bowel movements. 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 Prescriptions: No Action amoxicillin-pot clavulanate 875-125 mg tablet 1 tab PO BID Qty: 17 0RF Rx Instructions: Take with food ondansetron 4 mg tablet,disintegrating 4 mg PO Q8H PRN (Reason: nausea and vomiting) Qty: 10 0RF oxycodone 5 mg tablet 5 mg PO TID PRN (Reason: severe pain (scale score 7-10)) Qty: 5 0RF epinephrine [EpiPen 2-Arnaldo] 0.3 mg/0.3 mL auto-injector 0.3 mg IM Q4H PRN (Reason: anaphylaxis) Qty: 2 0RF Print Language: Slovenian
--- OUTSIDE RECORDS SUMMARY | 2024-04-16 20:09 | XMS_ITS ---
Author Organization [facility] Address [address] [place] [address] Care Team Providers Care Solar Installation Helper Name Role Phone Sergio SHEEHAN, Cruz Primary Care Provider Ed Bower Unavailable [phone] ALLERGIES No Known Allergies REASON FOR VISIT Patient presents today for diverticulitis. MEDICATIONS Medication SIG (Take, Route, Frequency, Duration) Notes Start Date End Date Status Hyoscyamine Sulfate SL 0.125 MG take 1 or 2 Sublingual Every 4 to 6 hours as needed for abdominal cramps/ bloating/discomfort for 30 days Active SOCIAL HISTORY Tobacco Use: Social History Observation Description Date Details (start date - stop date) Never Smoker NA - NA Sex Assigned At : Social History Observation Description Sex Assigned At Unknown Tobacco Use/Smoking Question Answer Notes Patient is a nonsmoker Alcohol Screen Question Answer Notes Did you have a drink contain ing alcohol in the past year? Yes How often did you have a dri nk containing alcohol in the past year? Never (0 point) How many drinks did you have on a typical day when you were drinking in the past year? 1 or 2 drinks (0 point) How often did you have 6 or more drinks on one occasion in the past year? Never (0 point) Points 0 Interpretation Negative VITAL SIGNS BMI 33.65 kg/m2 02/09/2023 Blood pressure systolic 000 mm Hg 02/10/20 23 Blood pressure diastolic 00 mm Hg 023 Height 63 in 02/09/2023 Temperature 97.7 degrees Fahrenheit 02/10/20 23 Weight 190 lbs 02/09/2023 Encounters Encounter Location Date Provider Diagnosis [facility] [address] [place] [address] 02/09/2023 Ed Orellana Irritable bowel synd mary with constipation K58.1 ; Abdominal pain, generalized R10.84 and Diverticulitis K57.92 ASSESSMENTS Encounter Date Diagnosis Assessment Notes Treatment Notes Treatment Clinical Notes 02/09/2023 Irritable bowel syndrome with constipation (ICD-10 - K58.1) Start 1 or 2 Metamucil fiber pills once or twice a day with a big glass of water to try to regulate the BM's Try to stay on a healthier high fiber diet with a lot of water in general 02/09/2023 Abdominal pain, generalized (ICD-10 - R10.84) 02/09/2023 Diverticulitis (ICD-10 - K57.92) 02/09/2023 Other Repeat colonoscopy in 04/2029 PLAN OF TREATMENT Medication Medication Name Sig Start Date Stop Date Notes Hyoscyamine Sulfate SL 0.125 MG take 1 or 2 Sublingual Every 4 to 6 hours as needed for abdominal cramps/ bloating/discomfort for 30 days Treatment Notes Assessment Notes Irritable bowel syndrome with constipati on Start 1 or 2 Metamucil fiber pills once or twice a day with a big glass of water to try to regulate the BM's Try to stay on a healthier high fiber diet with a lot of water in general Other Repeat colonoscopy i n 04/2029 Next Appt Details Follow Up: prn, Reason: Progress Notes * Examination Category Sub-Category Detail Notes General Examination GENERAL APPEARANCE: pleasant , well nourished, well developed, in no acute distress HEAD: EYES: sclera non-icteric EARS: NOSE: THROAT: NECK/THYROID: no cervical lymphade nopathy, neck supple HEART: S1, S2 normal CHEST: LUNGS: clear to auscultatio n bilaterally ABDOMEN: normal bowel sounds, no guarding or rigidity, no guarding or rigidity, no masses palpable, soft, nontender, nondistended NEUROLOGIC: alert and oriented SKIN: nonjaundiced, no spi facundo angiomata EXTREMITIES: no edema PERIPHERAL PULSES: BACK: BREASTS: MUSCULOSKELETAL: MALE GENITOURINARY: LYMPH NODES: RECTAL EXAM: FEMALE GENITOURINARY: ORAL CAVITY: mucosa moist
--- OUTSIDE RECORDS SUMMARY | 2024-04-16 20:09 | XMS_ITS | Patient Health Record ---
Author Organization [facility] Address [address] [place] [address] Care Team Providers Care Carrier Loader Name Role Phone Sergio SHEEHAN, Cruz Primary Care Provider Ed Bower Unavailable [phone] ALLERGIES No Known Allergies REASON FOR REFERRAL No Information MEDICATIONS Medication SIG (Take, Route, Frequency, Duration) [...] Never (0 point) Points 0 Interpretation Negative PROBLEMS Problem Type ICD Code Onset Dates Problem Status W/U Status Risk SNOMED Code Notes Problem Irritable bowel syndrome with constipation (K58.1) Active confirmed 558217586 Problem Diverticulitis (K57.92) Active confirmed 848304606 Problem Abdominal pain, generalized (R10.84) Active confirmed 774321917 PLAN OF TREATMENT Pending Test Test Name Order Date CELIAC PANEL #10 09/08/2022 Insurance Providers Payer Name Payer Address Payer Phone Subscriber Number Group Number Insured Name Patient Relationship to Insured Coverage Start Date Coverage End Date [facility] [address] [place], [place] [id number] AMALIA TAVERAS Self - patient is the insured MEDICAL (GENERAL) HISTORY Medical History History ICD Code Denies CA,DM,CVA,Lung disease,renal dise ase Colonoscopy in April with Dr. Hsieh revealed a normal examination other than a moderate amount of sigmoid diverticulosis. There was no evidence of inflammatory bowel disease and sigmoid colon biopsies were normal. She also had a negative colonoscopy 2 or 3 years prior to that at [facility]. IBS Diverticulitis requiring hos pitalization and IV antibiotics x 3 episodes-her most recent episode was in May of 2022 requiring 2 or 3 days in the hospital for IV antibiotics at [facility]. Her CT scan at that time described diverticulosis with wall thickening at the junction of the sigmoid and descending colon with inflammatory fat stranding and a tiny bit of free fluid. There was no evidence of any abscess nor perforation at that time after a CT scan was repeated with contrast. Surgical History Surgery Date(Month/Year) ACL repair left knee 2009 Breast reduction 2010 2013 Bladder suspension
[2024-04-16 20:38] LABS: MANUAL DIFF FLAG NO
[2024-04-16 20:41] LABS: Basophils Percent Auto 0.6 % (0-2); Eosinophils Absolute Auto 0.1 X10*3/uL (0.0-0.4); Hematocrit 40.3 % (37.0-47.0); Hemoglobin 13.8 g/dl (12.0-16.0); Imm Gran Abs Auto 0.01 X10*3/uL (0.00-0.03); Imm Gran Pct Auto 0.1 % (0.0-0.4); Lymphocytes Absolute Auto 1.7 X10*3/uL (1.2-4.9); Lymphocytes Percent Auto 23.9 % (20-40); Mean Corpuscular HGB Conc 34.2 g/dl (31.0-35.0); Mean Corpuscular Hemoglobin 29.7 pg (27.0-33.0); Mean Corpuscular Volume 86.9 fL (80.0-98.0); Mean Platelet Volume 10.8 fL (9.4-12.3); Monocytes Absolute Auto 0.5 X10*3/uL (0.1-1.2); Monocytes Percent Auto 6.4 % (2-11); Neutrophils Absolute Auto 4.7 x10*3/uL (2.0-8.3); Platelet Count 222 X10*3/uL (160-400); Red Blood Count 4.64 X10*6/uL (4.20-5.50); Red Cell Distribution Width 13.2 % (11.0-16.0)
[2024-04-16 20:51] LABS: Appearance Urine Clear; Color Urine Dark Yellow; Glucose Urine UA Negative (Negative); Leukocyte Esterase Urine Trace (Negative); Nitrite Urine Negative (Negative); Specific Gravity - Urine >= 1.030 (1.005-1.025); UMIC TRIGGER UACC YES; UPreg QC Valid YES; Urine Blood Small (1+) (Negative); Urine Ketones Trace mg/dL (Negative); Urine Pregnancy NEGATIVE (NEGATIVE); Urine Protein Trace mg/dL (Neg-Trace)
[2024-04-16 20:59] LABS: Bacteria Urine None Seen (None Seen); Hyaline Casts Urine 0-2 /LPF (0-2); RBC Urine 0-2 /HPF (0-2); WBC Urine 0-5 /HPF (0-5)
[2024-04-16 21:18] LABS: Alanine Aminotransferase 48 U/L (0-31); Alkaline Phosphatase 84 U/L (39-117); Anion Gap 11 (12-20); Aspartate Amino Transferase 228 U/L (5-31); Bilirubin Total 1.2 mg/dL (0.0-1.0); Blood Urea Nitrogen 11 mg/dL (9-16); C Reactive Protein 0.31 mg/dL (< or = 0.50); Carbon Dioxide 23 mmol/L (22-29); Chloride 111 mmol/L (96-108); Creatinine Clr Calc Pharmacy 80.6; Estimated Glomerular Filt Rate > 60; Glucose Random 117 mg/dL (60-115); Lipase 33 U/L (8-78); Magnesium 1.9 mg/dL (1.6-2.6); Potassium 3.9 mmol/L (3.3-5.1); Sodium 141 mmol/L (135-145); Total Protein 7.3 g/dL (6.5-8.0)
[2024-04-16 21:21] LABS: Erythrocyte Sedimentation Rate 11 MM/HR (0-20)
[2024-04-17 00:03] VITALS: BP 133/87; PULSE 76; RESP 16; TEMP 36.6; O2SAT 100
[2024-04-17] MEDS: 0.9 % Sodium Chloride 1,000 ML 999 ML IV (00:15)
[2024-04-17] MEDS: Sucralfate Oral Suspension 1 GM/10 ML ORAL.SUSP PO (00:15)
[2024-04-17] MEDS: ondansetron HCL 4 MG/2 ML VIAL IVPUSH (00:15)
[2024-04-17] MEDS: Ketorolac Tromethamine 15 MG/ML VIAL IVPUSH (00:15)
[2024-04-17] MEDS: Famotidine/PF 20 MG/2 ML VIAL IVPUSH (00:15)
[2024-04-17 01:39] VITALS: BP 124/72; PULSE 72; RESP 16; TEMP 36.2; O2SAT 96
--- NOTE | 2024-04-17 01:56 | PC.NURSE ---
Reviewed discharge instructions with pt, pt verbalized understanding, no sign of distress upon discharge, Iv removed, pt able to ambulate with a steady gait.
[2024-04-17 01:57] VITALS: BP 124/72; PULSE 72; RESP 16; TEMP 36.2; O2SAT 96
== END 2024-04-17 02:00 | disposition home or self-care (01) ==
PROVIDERS: Nurse Practitioner Family; Emergency Provider Emergency Medicine; PCP Internal Medicine
DX: R10.2 Pelvic and perineal pain (principal); M54.50 Low back pain, unspecified; R11.2 Nausea with vomiting, unspecified; R10.11 Right upper quadrant pain; Z79.899 Other long term (current) drug therapy
CPT/HCPCS: 36415; 74176; 76705; 80053; 81001; 81025; 83690; 83735; 85025; 85652; 86140; 96361; 96374; 96375; 99284; 99285; J1885; J2405

== ENCOUNTER → 2024-04-16 20:12 | Outpatient (BNV) | payer BC, SELFPAY | PROVIDERS: PCP Internal Medicine; Visit Provider Radiology Diagnostic Radiology | DX: R10.9 Unspecified abdominal pain (principal); R11.2 Nausea with vomiting, unspecified | CPT/HCPCS: 76705 ==

== ENCOUNTER → 2024-04-17 00:04 | Outpatient (BNV) | payer BC, SELFPAY | PROVIDERS: Emergency Provider Emergency Medicine; PCP Internal Medicine; Visit Provider Radiology Neuroradiology | DX: R10.31 Right lower quadrant pain (principal) | CPT/HCPCS: 74176 ==

== ENCOUNTER 2024-04-20 12:50 | Outpatient (REF) | payer BC, SELFPAY ==
[2024-04-20 13:53] LABS: Alanine Aminotransferase 39 U/L (0-31); Albumin Level 3.8 g/dL (3.5-5.0); Alkaline Phosphatase 73 U/L (39-117); Aspartate Amino Transferase 26 U/L (5-31); Bilirubin Direct 0.1 mg/dL (0.0-0.5); Bilirubin Total 0.5 mg/dL (0.0-1.0); Total Protein 7.3 g/dL (6.5-8.0)
== END 2024-04-20 12:51 | disposition home or self-care (01) ==
LOC: HO.LAB 12:50
PROVIDERS: PCP Internal Medicine; Visit Provider Internal Medicine
DX: R94.5 Abnormal results of liver function studies (principal)
CPT/HCPCS: 36415; 80076

== ENCOUNTER 2024-05-02 08:45 | Outpatient (REF) | payer BC, SELFPAY ==
[2024-05-02 11:09] LABS: Appearance Urine Clear; Color Urine Yellow; Glucose Urine UA Negative (Negative); Leukocyte Esterase Urine Negative (Negative); Nitrite Urine Negative (Negative); PH 6.5 (5.0-9.0); Specific Gravity - Urine 1.025 (1.005-1.025); Urine Blood Negative (Negative); Urine Ketones Negative (Negative); Urine Protein Trace mg/dL (Neg-Trace)
--- OUTSIDE RECORDS SUMMARY | 2024-05-02 11:44 | XMS_ITS ---
Author Organization Cruz Hill MD Address [address] [place] [phone] Care Team Providers Care Informatics Spec Name Role Phone Cruz Hill Primary Care Provider REASON FOR VISIT UA hematuria Encounters Encounter Location Date Provider Diagnosis Cruz Hill MD [address] [place] [phone] 05/02/2024 Cruz Hill Hematuria, unspecified type R31.9 Assessments Encounter Date Diagnosis (ICD Code) Assessment Notes Treatment Notes Treatment Clinical Notes Section Notes 05/02/2024 Hematuria, unspecified type (ICD-10 - R31.9) Plan Of Treatment Pending Test Test Name Order Date UA ClnCatch+Micro w/rflx Cult 05/02/2024 Next Appt Details Provider Name:Cruz Law ier, 09/18/2024 07:15:00 AM, [address] [place] [address], [address] [place] [address], [phone], Provider Name:Cruz traore, 09/25/2024 08:30:00 AM, [address] [facility], [address] [place] [address], [phone], Progress Notes * Vidya TAVERASOB:1980 (44 yo F)Acc No.[id number]:05/02/2024 Progress Note Patient:Ap LR Provider:?Cruz Hill MD :1980???Age:44 Y???Sex:Female D ate:05/02/2024 Address:[address] [place], [place] [phone] Subjective: * Chief Complaints: * ???1. UA hematuria. * Medical History:? Objective: * Vitals:? Assessment: * Assessment: 1.?Hematuria, unspecified ty pe - R31.9 (Primary)??? Plan: * Treatment: * * The named appointment provid er may or may not be the originator of this progress note, and it is not deemed complete until electronically signed by the appointment provider. Sign off status: Pending * Provider:?Cruz Hill MD Date:?0 05/02/2024 Generated for Kathleen bernal/Miller/Luisitting on:?05/02/2024 11:43 AM EST
--- OUTSIDE RECORDS SUMMARY | 2024-05-02 11:44 | XMS_ITS ---
Author Organization [facility] Address [address] [place] [address] Care Team Providers Care Stone Cleaner Name Role Phone Sergio SHEEHAN, Cruz Primary Care Provider Ed Bower Unavailable [phone] ALLERGIES No Known Allergies REASON FOR VISIT [...] 02/09/2023 Encounters Encounter Location Date Provider Diagnosis [facility] [address] [place] [address] 02/09/2023 Ed Orellana Irritable bowel synd mary [...] Next Appt Details Follow Up: prn, Reason: Provider Name:Ed Orellana , 08/23/2024 01:20:00 PM, [address], [address], [place], [address], Progress Notes * Examination Category Sub-Category Detail [...]
--- OUTSIDE RECORDS SUMMARY | 2024-05-02 11:44 | XMS_ITS ---
Author Name [facility] Organization Unknown History of Medication Use Medication Directions Dispensed Refills Start Date End Date Stat metformin ER 500 mg tablet,extended release 24 hr active hyoscyamine 0.125 mg sublingual tablet 04/27/2024 complet ed ondansetron [address] 1 TABLET ORALLY 3 TIMES A DAY TAKE NEEDED 04/27/2024 completed metformin ER 500 mg tablet,extended release 24 hr Take 1 tablet once daily by mouth with food, after 2 weeks increase to 1 tablet twice daily with food. (Please dispense generic XR equivalent) 04/27/2024 active Problems Problem Status Onset Date Problem Type Date of Resoluti on Source Vitamin D deficiency active 2024-04-27 ProblemAct [facility] Insulin resistance active 2024-04-27 ProblemAct [facility] Hyperlipidemia active 2024-04-27 ProblemAct [facility] Obese class II active 2024-04-27 ProblemAct [facility] Obesity active 2024-03-27 ProblemAct [facility]
--- OUTSIDE RECORDS SUMMARY | 2024-05-02 11:44 | XMS_ITS | Continuity of Care Document ---
Author Organization [facility], [email or web address] Address [address] [place] [address] Care Team Providers Care Marine Gear Keeper Name Role Phone CRUZ LOPEZ Primary Care Provider [phone] Assessment Encounter Date Assessment Date Assessment LastModified by Organization Details LastModified Time 04/27/2024 04/27/2024 44 yr old Female with class 2 obesity, IR/gestational DM, HLD, IBS - mixed presents for evaluation Obesity class 2, Insulin Resistance, h/o GDM -- Low glycemic diet, high protein breakfast, food order -- RD -- Weigh at least 1-2x/week, log in [employer] -- Increase exercise as tolerated - cardio and strength -- Start metformin XR 500 mg 1 tablet daily with breakfast/your first meal. After 2 weeks, add another tablet daily with dinner. -- Discussed topiramate as likely next step (cravings). Bupropion also an option, phentermine (previously effective, monitor BP), glp Hyperlipidemia -- Monitor with above Vit D def -- start otc d3 Followup: Appt w/ : 3 mo w/me Appt w/ RD: schedule new iredmond Not available 04/27/2024 14:54:48 Plan of Treatment Reminders Order Date Submit Date Provider Last Modified By Organization Details Last Modified Time Details Appointments FOLLOW-UP (FV)-65 2024 09:30A Ta Escobar MD Not available Not available Not available Lab None recorded. Referral None recorded. Procedures None recorded. Surgeries None recorded. Imaging None recorded. Medication Orders metformin ER 500 mg tablet,ex tended release 24 hr 2024 025 [id number], [address] [facility] [place], [address], 04/27/2024 14:54:04 Patient TargetsNo targets recorded. Patient InstructionsNo instructions recorded. Reason for Referral None Reported. Problems Name Problem SNOMED Code Status Onset Date Resolution Date Notes Provider Name and Address Organization Details Recorded Time Obesity 445805849 Active 2023 Majora Flynn [email or web address]. - [facility] 4 16:00:44 Insulin resistance 821407943 Active 2024 Sara Escobar MD [address] [place] [address],[address] [place] [address], [place], [address] , [email or web address]. - [facility] 14:53:24 Hyperlipid emia 82231147 Active 2024 Sara Escobar MD [address] [place] [address],[address] [place] [address], [place], [address] , [email or web address]. - [facility] 14:53:37 Vitamin D deficiency 79771446 Active 2024 Sara Escobar MD [address] [place] [address],[address] [place] [address], [place], [address] , [facility] [employer] [facility]. - [facility] 14:53:41 Obese class II 6060462205468 05 Active 2024 Sara Escobar MD [address] [place] [address],[address] [place] [address], [place], [address] , [employer] [facility]. - [facility] 14:53:49 Problem Notes None recorded. Procedures Surgical History Date Name Laterality Status Provider Name and Address Organization Details Recorded Time reconstruction of anterior cruciate ligament of knee joint completed [employer]. - [facility] 04/24/2024 12:05:52 section completed [employer]. - [facility] 04/24/2024 12:05:58 Imaging Results None recorded. Procedure Notes None recorded. Medical Equipment None Reported. Allergies No known drug allergies Medications Name Sig Start Date Stop Date Status Note LastModified by Organization Details LastModified Time hyoscyamine 0.125 mg sublingual tablet 04/27 completed Not Available Not Available Not Available ondansetron 4 mg disintegrat ing tablet PLACE 1 TABLET ORALLY 3 TIMES A DAY TAKE NEEDED 04/27 completed Not Available Not Available Not Available metformin ER 500 mg tablet,exte nded release 24 hr Take 1 tablet once daily by mouth with food, after 2 weeks increase to 1 tablet twice daily with food. (Please dispense generic XR equivalen t) 2024 active Not Available Not Available Not Avai lable Vitals Date Recorded Body height Body mass index (BMI) Body weight Provider Name and Address Organization Details Last Updated DateTime 04/27/2024 160.02 cm 34.5 kg/m2 17962.51 g Sara Escobar MD [address] [place] [address],[address], [place], [address], [facility]. - [facility] 04/27/2024 14:13:04 Social History Question Answer Notes LastModified by Organizat ion Details LastModified Time Tobacco Smoking Status Never Smoker Cinthya joshi, [facility]. - [facility] 04/24/2024 12:05:28 Do You Or Have You Ever Used Any Other Forms Of Tobacco Or Nicotine? No [email or web address] Information not available 04/24/2024 Sex: Female Functional Status None recorded. Mental Status None recorded. Family History Nothing Reported. Medical History Condition Response Pancreatitis N Coronary Artery Disease N Gout N Other Y Metabolic Syndrome/Insulin Resistance N Kidney Stones N Hyperthyroidism N Breast Cancer N Hernias N COPD N Depression N Lung Disease N Glaucoma N Anorexia N Hypothyroidism N Developmental or Behavioral Disorders N Peripheral Edema N Gestational Diabetes N Obstructive Sleep Apnea N Genetic Obesity (POMC, PCSK1, LEPR defic iency) N Anxiety Disorder N Arthritis N Infertility N Cancer N Varicosities N Skin Infections N Atrial Fibrilation N Endometriosis N Binge Eating Disorder N Stroke/TIA N High Cholesterol N Liver Disease N Fibromyalgia N Headaches N Kidney Disease N Allergies/Hayfever N Gall Bladder Stones/Disease N Angina N ADD/ADHD N Eating Disorder N Anemia N Muscle, Joint, or Bone Problems/Pain N Constipation Y Colon Polyps N Mental Illness N Thyroid nodules N Diabetes N Ovarian Cancer N Night Eating Syndrome N Seizures/Epilepsy N AIDS/HIV N Congestive Heart Failure (CHF) N Eczema N Abuse/Domestic Violence N Diverticulitis Y Asthma N Reflux/GERD N Hepatitis N Pulmonary Embolism N DE N Pre-Eclampsia N Hypertension N Bulimia Nervosa N Skin Tags N Osteoporosis N Thrombophilias N Gynecological HistoryNo gynecological history recorded. Obstetrics History GPAL:G 0 P 0 0 0 0 Past Encounters Encounter ID Performer Location Encounter Start Date Encounter Closed Date Diagnosis/Indication Diagnosis SNOMED-CT Code Diagnosis ICD10 Code Diagnosis Note [id number] Sara Escobar MD [address] [address] 04/27/2024 14:05:10 05/02/2024 04:00:25 Insulin resistance 850233407 E88.819 Obese class II 033004399 1 [address] E66.812 Hyperlipidemia 91797405 E78.5 Vitamin D deficiency 347 97107 E55.9 Health Concerns Section Related Observation LastModified by Organization Detai ls LastModified Time None Recorded Concern Status LastModified by Organization Details LastModified Time None Recorded Payers Encounter Date Sequence Insurance Name Policy Number Policy Emerson Covered Member ID Emerson Member ID Guarantor Name 04/27/2024 [facility] Apjuan Montgomery [id number] 512 Ap Montgomery Notes Date Note Type Note Provider Name and Address Organization Details Recorded Time 5 text/html I have confirmed that the patient is physically located in the state of {{[place] Priyanka [facility] Color ado [facility] Id phyllis [facility] Mon junior [facility] on [facility] Jeff g}}Synchronous telemedicine service rendered via a real-time interactive audio and video communications system-- 44 yr old Female with class 2 obesity, IR/gestational DM, HLD, IBS - mixed, low vit D presents for evaluation.Referred By [facility]: Cruz Lopez MDVITALSHeight: 5'3 Weight: 195 lbsHighest weight/BMI: 210.0 lbs, BMI 37.2, 2010Baseline weight/BMI: 195.0 lbs, BMI 34.5Lowest adult weight/BMI: 155.0 lbs, BMI 27.4, 2005Last weight/BMI: 195.0 lbs, BMI 34.5Total weight loss (Highest - Last): -15.0 lbs / -7.1%Total weight loss (Baseline - Last): 0.0 lbs / 0.0%Last Blood Pressure: Insufficient Number of ReadingsAverage Blood pressure: Insufficient Number of ReadingsLast Pulse: Insufficient Number of ReadingsAverage Pulse: Insufficient Number of ReadingsWEIGHT HISTORYweight gain w/ -- GDM, managed w/lifestyleACL tear -- never correctedWeight gain coincided with: Having a childCurrent lifestyle factors: Stressful, Free/junk food availableMotivation for weight loss: To look or feel betterChallenges: Always regain lost weight, Strong cravings, Schedule/lifestylePreviou s diets:Previous anti-obesity medications: Adipex x1 yr -- years ago, helpful, compounded glp x1 mo -- helpful but expensivePrevious bariatric surgeries/procedures/jenifer edward: noProcedure:Year:High weight before:Low weight after:DIETARY RECALLBreakfast: bagel, juiceLunch: busy at work -- skips or whatever is available, sandwich, pizza, setswana friesDinner: with family - protein/veg/carbSnacks: sweet after dinner +cravingsBeverages: water, occ diet root beer, poppi 1-2x/wk, etoh 2-3 drinks/weekEATING BEHAVIORHistory of Eating Disorder: NoBinge Eating: NeverExcessive appetite: NeverGrazing: NeverCravings: AlwaysTrigger for Overeating: Yes - Stress, Boredom, DepressionPercentage of Daily Calories consumed after dinnertime: 0-25%Eating window:Biggest Meal of the day: DinnerWeekly Restaurant/Take out Meals:Dietary Strategies that are appealing: Mediterranean, Intermittent fasting, Time-restricted eating, Meal replacementsFood sensitivities/restriction s:Foods/Drinks consumed regularly: Diet Soda, Candy, Sweets, Baked goods, Fast food, Processed/packaged foodMiddle of the night eating: noPHYSICAL ACTIVITYAverage daily steps: 2-5,000Activity Level: Lightly active (e.g., some light activity in daily life)varied - on feet at work, gym with daughter up to 2x/wkSLEEPHours of sleep per night: 6OSA Dx: NoSnoring: Yes - MildWitnessed Apnea: NoTreating sleep apnea adequately:Daytime Sleepiness: YesMedications to help with sleep: rare tylenol pmSTOP-BANG score: 04/11Insomnia: YesPSYCHDepression: NoAnxiety: NoOther psych diagnoses:Current treatment:Provider(s):DELFINO Ponce MEDICAL/SURGICAL HISTORYas aboveSurgeries:ACL repairc/sectionBreast reduction Denies history of pancreatitis, personal/fhx MTC/MEN2, nephrolithiasis, seizures, glaucomaSOCIAL HISTORYOccupation: [employer] program for kids with social emotional disabilityMarital Status: marriedChildren: 2 daughtersAlcohol: Yes 2-3 drinks/weekInterested in drinking less: YesNicotine/Tobacco: NoRecreational drugs: NoHistory of drug abuse/addiction: NoFAMILY HISTORYOverweight/Obesity : Mother -- on [id number], prediabetes, insulin resistance, PCOS: NoMEN2 or MTC: noMEDICATIONSMedications: noneSupplements: noneALLERGIESNKDALABS/SHINE GING 4CBC, CMP itqSrC9l 5.6%Insulin 9.2TC 228,TG 112, HDL 54,LDL 154TSH 2.3VIt B12 42258WFG 22-- start otc d3 Sara Escobar MD [address] [place] [address],[address], [place], [address], [facility] 04/27/2024 14:55:10 OBGyn Episode No OBEpisode recorded.
--- OUTSIDE RECORDS SUMMARY | 2024-05-02 11:44 | XMS_ITS ---
Author Organization [facility] Address [address] [place] [address] Care Team Providers Care Threat Analyst Name Role Phone Cruz Hill MD Primary Care Provider Ed Bower Unavailable [phone] REASON FOR VISIT recall Encounters Encounter Location Date Provider Diagnosis [facility] [address] [place] [address] 02/09/2023 Ed Orellana PLAN OF TREATMENT Next Appt Details Provider Name:Ed Orellana , 08/23/2024 01:20:00 PM, [address], [address], [place], [address],
--- OUTSIDE RECORDS SUMMARY | 2024-05-02 11:44 | XMS_ITS | Patient Health Record ---
Author Organization [facility] Address [address] [place] [id number] Care Team Providers Care Kiln Transfer Operator Name Role Phone Sergio SHEEHAN, Cruz Primary Care Provider Ed Bower Unavailable [phone] ALLERGIES No Known Allergies RESULTS Component Value Reference Range Notes Liver Panel Reviewed date:04/20/2024 02:16:19 PM Interpretation: Performing Lab:[facility], [address] [place] [id number] Notes/Report: Bilirubin Total 0.5 0.0-1.0 mg/dL Bilirubin Direct 0.1 0.0-0.5 mg/dL Aspartate Amino Transferase 26 5-31 U/L Alanine Aminotransferase 39 0-31 U/L Total Protein 7.3 6.5-8.0 g/dL Albumin Level 3.8 3.5-5.0 g/dL Alkaline Phosphatase 73 39-117 U/L REASON FOR REFERRAL No Information MEDICATIONS Medication [...] bowel syndrome with constipation (K58.1) Active confirmed 953129931 Problem Diverticulitis (K57.92) Active confirmed 290491517 Problem Abdominal pain, generalized (R10.84) Active confirmed [id number] Problem Elevated liver function tests (R94.5) Active confirmed Elevated liver enzymes level (700229018) Encounters Encounter Location Date Provider Diagnosis [facility] [address] [place] [address] 04/18/2024 Ed Orellana Elevated liver function tests R94.5 and Irritable bowel syndrome with constipation K58.1 ASSESSMENTS Encounter Date Diagnosis Assessment Notes Treatment Notes Treatment Clinical Notes 04/18/2024 Elevated liver function tests (ICD-10 - R94.5) 04/18/2024 Irritable bowel syndrome with constipation (ICD-10 - K58.1) PLAN OF TREATMENT Pending Test Test Name Order Date LIVER PROFILE 04/18/2024 CELIAC PANEL #10 09/08/2022 Next Appt Details Provider Name:Ed Orellana , 08/23/2024 01:20:00 PM, [address] [place] [address], [address], [place], [address], Insurance Providers Payer Name Payer Address Payer Phone Subscriber Number Group Number Insured Name Patient Relationship to Insured Coverage Start Date Coverage End Date [facility] [address] [place], [place] [id number] AMALIA TAVERAS Self - patient is the insured MEDICAL (GENERAL) HISTORY Medical History History ICD Code Denies [place],DM,CVA,Lung disease,renal dise ase Colonoscopy in April with Dr. Hsieh revealed a normal examination other than a moderate amount of sigmoid diverticulosis. There was no evidence of inflammatory bowel disease and sigmoid colon biopsies were normal. She also had a negative colonoscopy 2 or 3 years prior to that at [facility]. IBS Diverticulitis requiring hos pitalization and IV antibiotics x 3 episodes-her most recent episode was in May of 2022 requiring 2 or 3 days in the hospital for IV antibiotics [place] [facility] scan at that time described diverticulosis with wall thickening at the junction of the sigmoid and descending colon with inflammatory fat stranding and a tiny bit of free fluid. There was no evidence of any abscess nor perforation at that time after a CT scan was repeated with contrast. Surgical History Surgery Date(Month/Year) ACL repair left knee 2008 Breast reduction 2010 2012 Bladder suspension
--- OUTSIDE RECORDS SUMMARY | 2024-05-02 11:44 | XMS_ITS | Patient Health Record ---
Author Organization Cruz Hill MD Address [address] [place], [place] [id number] Care Team Providers Care Web Marketing Intern Name Role Phone Cruz Hill Primary Care Provider [phone] Allergies No Known Allergies Results Component Value Reference Range Notes Complete Blood Count Auto Di ff Reviewed date:09/13/2023 12:44:40 PM Interpretation: Performing Lab:[facility], [address] [place] [phone] Notes/Report: White Blood Count 5.4 4.8-10.8 X10*3/uL Red Blood Count 4.56 4.20-5.50 X10*6/uL Hemoglobin 13.5 12.0-16.0 g/dl Hematocrit 41.3 37.0-47.0 % Mean Corpuscular Volume 90.6 80.0-98.0 fL Mean Corpuscular Hemoglobin 29.6 27.0-33.0 pg Mean Corpuscular HGB Conc 32.7 31.0-35.0 g/dl Red Cell Distribution Width 13.4 11.0-16.0 % Platelet Count 205 160-400 X10*3/uL Mean Platelet Volume 11.5 9.4-12.3 fL Neutrophils Percent Auto 61.9 45-73 % Imm Gran Pct Auto 0.2 0.0-0.4 % Lymphocytes Percent Auto 28.1 20-40 % Monocytes Percent Auto 6.7 2-11 % Eosinophils Percent Auto 2.4 0-4 % Basophils Percent Auto 0.7 0-2 % NRBC Pct Auto 0.0 0.0-0.2 /100WBC Neutrophils Absolute Auto 3.3 2.0-8.3 x10*3/u L Imm Gran Abs Auto 0.01 0.00-0.03 X10*3/uL Lymphocytes Absolute Auto 1.5 1.2-4.9 X10*3/u L Monocytes Absolute Auto 0.4 0.1-1.2 X10*3/uL Eosinophils Absolute Auto 0.1 0.0-0.4 X10*3/u L Basophils Absolute Auto 0.0 0.0-0.2 X10*3/uL NRBC Abs Auto 0.000 0.0-0.012 X10*3/uL Comprehensive [place]. Panel Fa st Reviewed date:09/13/2023 02:27:52 PM Interpretation: Performing Lab:[address] [phone] Notes/Report: Sodium 139 135-145 mmol/L Potassium 4.2 3.3-5.1 mmol/L Chloride 110 96-108 mmol/L Carbon Dioxide 25 22-29 mmol/L Anion Gap 8 12-20 Blood Urea Nitrogen 9 9-16 mg/dL Creatinine 0.90 0.5-1.4 mg/dL Estimated Glomerular Filt Rate > 60 NOTE: For -Tunisian individuals, multiply the result by 1.210. Chronic Kidney Disease: Estimated GFR < 60 mL/min/1.73m2 Severe Kidney Disease: Estimated GFR < 15 mL/min/1.73m2 Glucose Fasting 93 60-99 mg/dL Calcium 9.4 8.4-10.2 mg/dL Bilirubin Total 0.6 0.0-1.0 mg/dL Aspartate Amino Transferase 24 5-31 U/L Alanine Aminotransferase 9 0-31 U/L Total Protein 7.2 6.5-8.0 g/dL Albumin Level 3.9 3.5-5.0 g/dL Alkaline Phosphatase 47 39-117 U/L Lipid Panel Reviewed date:09/13/2023 12:34:07 PM Interpretation: Performing Lab:[address] [place] [address] Notes/Report: Triglycerides 171 <150 mg/dL Desirable Triglyceride: less than 150 mg/dL Borderline High Triglyceride 150-199 mg/dL High Triglyceride: 200-499 mg/dL Very High Triglyceride: greater than or equal to 5OO mg/dL Cholesterol 220 <200 mg/dL Desirable Cholesterol: less than 200 mg/dL Borderline High Cholesterol: 200-239 mg/dL High Cholesterol: greater than 239 mg/dL LDL Cholesterol Calculated 135 <100 mg/dL Desirable LDL: less than 100 mg/dL Near Optimal/Above Optimal LDL: 110-129 mg/dL Borderline High LDL: 130-159 mg/dL High LDL: 160-189 mg/dL Very High LDL: greater than or equal to 190 mg/dL HDL Cholesterol 51 >40 mg/dL Desirable HDL: greater than 40 mg/dL Note: This HDL assay may give artificially low results in patients with liver disease. UA ClnCatch+Micro w/rflx Cul t Reviewed date:09/13/2023 04:56:20 PM Interpretation: Performing Lab:[facility], [address] [place] [phone] Notes/Report: Urine, Clean Catch Color Urine Yellow Appearance Urine Hazy PH 6.0 5.0-9.0 Glucose Urine UA Negative Negative mg/dL Urine Blood Trace Negative Specific [place] - Urine >= 1.030 1.005-1.025 Urine Protein Trace Neg-Trace mg/dL Urine Ketones Trace Negative mg/dL Nitrite Urine Negative Negative Leukocyte Esterase Urine Negative Negative RBC Urine 0-2 0-2 /HPF WBC Urine 0-5 0-5 /HPF Squamous Epithelial Cell Urine 6-10 0-2 /HPF Calcium Oxalate Crystals Urine Present Bacteria Urine 2+ None Seen Hyaline Casts Urine 0-2 0-2 /LPF MM tomosynthesis screening B I Reviewed date:04/17/2024 02:20:02 PM Interpretation: Performing Lab: Notes/Report: [facility] [address] [place] [address] Mammography Report Signed Patient: Ap Taveras MR#: [id number] 56 : 1980 Acct:[id number] Age/Sex: 44 / F ADM Date: 04/10/24 Loc: RADHA Attending Dr: Cruz Hill MD Ordering Physician: Cruz Hill MD Results: 2Be nigmarv Findings Date of Service: 04/10/24 Follow Up: 1 Year From Orig inal Mammogram Procedure(s): MM tomosynthesis screening BI Accession Number(s): [id number] cc: Cruz Hill MD EXAMINATION: MM SCREENING DIGITAL BREAST TOMOSYNTHESIS, BILATERAL CLINICAL INFORMATION: Screening. Asymptomatic. COMPARISON: Mammography: Baseline. TECHNIQUE: Digital breast mammography with tomosynthesis is performed in both the craniocaudal and mediolateral oblique views along with computer-aided detection (CAD). FINDINGS: The breasts are heterogeneously dense, which may obscure small masses (ACR BI-RADS breast composition Category c). Bilateral reduction mammoplasty. There are no significant masses, abnormal calcifications, or other abnormalities. MM/MM tomosynthesis screening BI IMPRESSION: No mammographic evidence of malignancy. ASSESSMENT: BI-RADS BI-RADS 2 - Benign Findings RECOMMENDATION: Routine annual mammography screening. 1 year F/U This examination should not preclude the clinical evaluation of a suspicious palpable abnormality. This patient's information was entered into a reminder system with a target due date for their next mammogram. Electronically signed by: Candy Pina DO 04/16/2024 05:49 PM [facility] Dictated By: Candy Pina DO Signed By: <Electronically signed by Canyd Pina DO in OV> 04/16/24 1749 DD/ 0805 TD/TT: 04/10/24 0820 Scientist Engineer: [facility] [address] [place] [address] Mammography Report Signed Patient: Freddy Taveras MR#: [id number] 56 : 1980 Acct:[id number] Age/Sex: 44 / F ADM Date: 04/10/24 Loc: HO.MAMMO Attending Dr: Cruz Hill MD Ordering Physician: Cruz Hill MD Results: 2Be nigmarv Findings Date of Service: 04/10/24 Follow Up: 1 Year From Orig inal Mammogram Procedure(s): MM tomosynthesis screening BI Accession Number(s): [id number] cc: Cruz Hill MD EXAMINATION: MM SCREENING DIGITAL BREAST TOMOSYNTHESIS, BILATERAL CLINICAL INFORMATION: Screening. Asymptomatic. COMPARISON: Mammography: Baseline. TECHNIQUE: Digital breast mammography with tomosynthesis is performed in both the craniocaudal and mediolateral oblique views along with computer-aided detection (CAD). FINDINGS: The breasts are heterogeneously dense, which may obscure small masses (ACR BI-RADS breast composition Category c). Bilateral reduction mammoplasty. There are no significant masses, abnormal calcifications, or other abnormalities. MM/MM tomosynthesis screening BI IMPRESSION: No mammographic evidence of malignancy. ASSESSMENT: BI-RADS BI-RADS 2 - Benign Findings RECOMMENDATION: Routine annual mammography screening. 1 year F/U This examination acosta uld not preclude the clinical evaluation of a suspicious palpable abnormality. This patient's information was entered into a reminder system with a target due date for their next mammogram. Electronically jarred d by: Candy Pina DO 04/16/2024 05:49 PM [facility] Dictated By: Candy Pina DO Signed By: <Electronically signed by Candy Pina DO in OV> 04/16/24 1749 DD/ 0805 TD/TT: 04/10/24 0820 Scientist Engineer: Complete Blood Count Auto Di ff Reviewed date:04/17/2024 02:30:07 PM Interpretation: Performing Lab:[facility], [address] [place] [phone] Notes/Report: White Blood Count 7.0 4.8-10.8 X10*3/uL Red Blood Count 4.64 4.20-5.50 X10*6/uL Hemoglobin 13.8 12.0-16.0 g/dl Hematocrit 40.3 37.0-47.0 % Mean Corpuscular Volume 86.9 80.0-98.0 fL Mean Corpuscular Hemoglobin 29.7 27.0-33.0 pg Mean Corpuscular HGB Conc 34.2 31.0-35.0 g/dl Red Cell Distribution Width 13.2 11.0-16.0 % Platelet Count 222 160-400 X10*3/uL Mean Platelet Volume 10.8 9.4-12.3 fL Neutrophils Percent Auto 67.0 45-73 % Imm Gran Pct Auto 0.1 0.0-0.4 % Lymphocytes Percent Auto 23.9 20-40 % Monocytes Percent Auto 6.4 2-11 % Eosinophils Percent Auto 2.0 0-4 % Basophils Percent Auto 0.6 0-2 % NRBC Pct Auto 0.0 0.0-0.2 /100WBC Neutrophils Absolute Auto 4.7 2.0-8.3 x10*3/u L Imm Gran Abs Auto 0.01 0.00-0.03 X10*3/uL Lymphocytes Absolute Auto 1.7 1.2-4.9 X10*3/u L Monocytes Absolute Auto 0.5 0.1-1.2 X10*3/uL Eosinophils Absolute Auto 0.1 0.0-0.4 X10*3/u L Basophils Absolute Auto 0.0 0.0-0.2 X10*3/uL NRBC Abs Auto 0.000 0.0-0.012 X10*3/uL Erythrocyte Sedimentation Ra te Reviewed date:04/17/2024 12:46:08 PM Interpretation: Performing Lab:[facility], [address] [place] [phone] Notes/Report: Erythrocyte Sedimentation Rate 11 0-20 MM/HR Patients with polycythemia and many hemoglobin abnormalities may have depressed sed rates whereas patients with anemia may have elevated sed rates. Ur Preg Test Reviewed date:04/17/2024 12:45:59 PM Interpretation: Performing Lab:[facility], [address] [place] [phone] Notes/Report: Urine NEGATIVE NEGATIVE This test was developed to detect early . False negative results may occur after the 5th - 7th week of when using this test method. If clinically indicated, consider a serum hCG. Comprehensive Met. Panel Reviewed date:04/17/2024 12:47:02 PM Interpretation: Performing Lab:[facility], [address] [place] [phone] Notes/Report: Sodium 141 135-145 mmol/L Potassium 3.9 3.3-5.1 mmol/L Chloride 111 96-108 mmol/L Carbon Dioxide 23 22-29 mmol/L Anion Gap 11 12-20 Blood Urea Nitrogen 11 9-16 mg/dL Creatinine 0.93 0.5-1.4 mg/dL Creatinine Clr Calc Pharmacy 80.6 Provided height and weight: 160.02 cm, 88.451 kg. eGFR (calculated from the MDRD study equation) and eCrCl (calculated from the Cockcroft-Gault equation) are based on different parameters and may not yield comparable results. If eCrCl result is absurd, please check patient's height/weight. Estimated Glomerular Filt Rate > 60 Chronic Kidney Disease: Estimated GFR < 60 mL/min/1.73m2 Severe Kidney Disease: Estimated GFR < 15 mL/min/1.73m2 Glucose Random 117 60-115 mg/dL Calcium 9.0 8.4-10.2 mg/dL Bilirubin Total 1.2 0.0-1.0 mg/dL Aspartate Amino Transferase 228 5-31 U/L Alanine Aminotransferase 48 0-31 U/L Total Protein 7.3 6.5-8.0 g/dL Albumin Level 4.0 3.5-5.0 g/dL Alkaline Phosphatase 84 39-117 U/L Magnesium Reviewed date:04/17/2024 12:46:35 PM Interpretation: Performing Lab:[facility], [address] [place] [phone] Notes/Report: Magnesium 1.9 1.6-2.6 mg/dL C Reactive Protein Reviewed date:04/17/2024 12:46:26 PM Interpretation: Performing Lab:[facility], [address] [place] [phone] Notes/Report: C Reactive Protein 0.31 < or = 0.50 mg/dL Lipase Reviewed date:04/17/2024 12:46:18 PM Interpretation: Performing Lab:[facility], [address] [place] [phone] Notes/Report: Lipase 33 8-78 U/L UA ClnCatch+Micro w/rflx Cul t Reviewed date:04/17/2024 02:39:02 PM Interpretation: Performing Lab:[facility], [address] [place] [phone] Notes/Report: [id number] Urine, Clean Catch Color Urine Dark Yellow Appearance Urine Clear PH 6.0 5.0-9.0 Glucose Urine UA Negative Negative mg/dL Urine Blood Small (1+) Negative Specific [place] - Urine >= 1.030 1.005-1.025 Urine Protein Trace Neg-Trace mg/dL Urine Ketones Trace Negative mg/dL Nitrite Urine Negative Negative Leukocyte Esterase Urine Trace Negative RBC Urine 0-2 0-2 /HPF WBC Urine 0-5 0-5 /HPF Squamous Epithelial Cell Urine 6-10 0-2 /HPF Bacteria Urine None Seen None Seen Hyaline Casts Urine 0-2 0-2 /LPF US abdomen limited Reviewed date:04/17/2024 12:45:41 PM Interpretation: Performing Lab: Notes/Report: [address] [address] Ultrasound Report Signed Patient: Ap Taveras MR#: [id number] 56 : 1980 Acct:[id number] Age/Sex: 44 / F ADM Date: 04/16/24 Loc: HO.ED Attending Dr: Ordering Physician: Steph Tai CNP Date of Service: 04/16/24 Procedure(s): US abdomen limited Accession Number(s): [id number] cc: Steph Tai CNP; Cruz Hill MD CLINICAL HISTORY: right ABD pain, nausea, vomiting US abdomen limited Comparison: None Findings: The visualized pancreas is normal. The aorta and inferior vena cava are normal caliber. The liver is normal in size and echotexture. There is no intrahepatic bile duct dilatation. The common duct is 5 mm in diameter. The gallbladder is significant for small echogenic structure in the region of the gallbladder neck without evidence of shadowing perhaps representing a small polyp.. There is no sonographic Talavera sign. The main portal vein is antegrade. The right kidney is 10.4 cm in length. No ascites. IMPRESSION: Possible small polyp gallbladder neck. Otherwise unremarkable examination. This document has been electronically signed by: Mnai Kumari MD on 04/16/2024 22:20:52 Dictated By: Mani Kumari MD Signed By: <Electronically signed by Mani Kumari MD in OV> 04/16/242221 DD/ 19 TD/TT: 04/16/242219 Scientist Engineer: [address] [address] Ultrasound Report Signed Patient: Freddy Taveras MR#: [id number] [birth year] : 1980 Acct:[id number] Age/Sex: 44 / F ADM Date: 04/16/24 Loc: HO.ED Attending Dr: Ordering Physician: Steph Tai CNP Date of Service: 04/16/24 Procedure(s): US abdomen limited Accession Number(s): [id number] cc: Steph Tai CNP; Cruz Hill MD CLINICAL HISTORY: ri ght ABD pain, nausea, vomiting US abdomen limited Comparison: None Findings: The visualized pancr eas is normal. The aorta and inferi or vena cava are normal caliber. The liver is normal in size and echotexture. There is no intrahepatic bile duct dilatation. The common duct is 5 mm in diameter. The gallbladder is significant for small echogenic structure in the region of the gallbladder n theodore without evidence of shadowing perhaps representing a small polyp.. Ther e is no sonographic Talavera sign. The main portal vein is antegrade. The right kidney is 10.4 cm in length. No ascites. IMPRESSION: Possible small polyp gallbladder neck. Otherwise unremarkable examination. This document has be en electronically signed by: Mani Kumari MD on 04/16/2024 22:20:52 Dictated By: Mani Kumari MD Signed By: <Electronically signed by Mani Kumari MD in OV> 04/16/242221 DD/ 19 TD/TT: 04/16/242219 Scientist Engineer: CT abdomen pelvis wo con Reviewed date:04/17/2024 12:45:09 PM Interpretation: Performing Lab: Notes/Report: [address] [address] [address] Scan Report Signed Patient: Ap Taveras MR#: [id number] 56 : 1980 Acct:[id number] Age/Sex: 44 / F ADM Date: 04/16/24 Loc: HO.ED Attending Dr: Ordering Physician: Jolene Anguiano Date of Service: 04/17/24 Procedure(s): CT abdomen pelvis wo IV con Accession Number(s): [id number] cc: Cruz Hill MD; Jolene Anguiano Report Number: [id number]: Total DLP = 723.00 mGy-cm CLINICAL HISTORY: right flank CT abdomen and pelvis without contrast Comparison: CT of the abdomen and pelvis from 05/08/2022 Findings: Mild bibasilar atelectasis. No obstructing stone of either kidney or either ureter. Gallbladder wall thickening is nonspecific and may be accentuated by contraction of the gallbladder. Gallbladder is not further characterize by noncontrast CT. Adrenal glands are unchanged with 1.5 cm splenule favored adjacent to left adrenal gland. Mild volume loss of the pancreas again noted. Spleen is nonenlarged. Small mesenteric and periaortic lymph nodes are nonspecific and may be reactive. No small bowel obstruction. Severe stool burden is present, including the cecum. Imaged appendix is retrocecal, gas-filled, and nondilated. Uterus is anteverted. No adnexal soft tissue mass by noncontrast CT. Urinary bladder is unremarkable. Gas in the pelvis is related to tampon in place. Subcutaneous edema is noted. No definite osseous change in the [id number]. IMPRESSION: 1. No obstructing stone in either kidney or either ureter. 2. Mild wall thickening of the gallbladder by CT. 3. Severe stool burden. No small bowel obstruction. This document has been electronically signed by: Shlomo Can MD on 04/17/2024 01:14:56 Dictated By: Shlomo Can MD Signed By: <Electronically signed by Shlomo Can MD in OV> 04/17/24114 DD/ 3 TD/TT: 04/17/24113 Scientist Engineer: [address] [address] [address] Scan Report Signed Patient: Freddy Taveras MR#: [id number] 56 : 1980 Acct:[id number] Age/Sex: 44 / F ADM Date: 04/16/24 Loc: HO.ED Attending Dr: Ordering Physician: Jolene Anguiano Date of Service: 04/17/24 Procedure(s): CT abdomen pelvis wo IV con Accession Number(s): [id number] cc: Cruz Hill MD; Jolene Anguiano Report Number: [id number]: Total DLP = 723.00 mGy-cm CLINICAL HISTORY: ri ght flank CT abdomen and pelvi s without contrast Comparison: CT of e abdomen and pelvis from 05/08/2022 Findings: Mild bibasilar atelectasis. No obstructing stone of either kidney or either ureter. Gallbladder wall thickening is nonspecific and may be accentuated by contraction of the gallbladder. Gallbladder is not further characterize by noncontrast CT. Adrenal glands are unchanged with 1.5 cm splenule favored adjacent to left adrenal gland. Mild volume loss of the pancreas again noted. Spleen is nonenlarged. Small mesenteric and periaortic lymph nodes are nonspecific and may be reactive. No small bowel obstruction. Severe stool burden is present, including the cecum. Imaged appendix is retrocecal, gas-filled, and nondilated. Uterus is anteverted . No adnexal soft tissue mass by noncontrast CT. Urinary bladder is unremarkable. Gas in the pelvis is related to tampon in place. Subcutaneous edema is noted. No definite osseous change in the [id number]. IMPRESSION: 1. No obstructing st one in either kidney or either ureter. 2. Mild wall thicken ing of the gallbladder by CT. 3. Severe stool niall en. No small bowel obstruction. This document has be en electronically signed by: Shlomo Can MD on 04/17/2024 01:14:56 Dictated By: Lela Can MD Signed By: <Electronically signed by Shlomo Can MD in OV> 04/17/24114 DD/ 3 TD/TT: 04/17/24113 Scientist Engineer: Liver Panel Reviewed date:04/20/2024 05:09:14 PM Interpretation: Performing Lab:[facility], [address] [place] [phone] Notes/Report: Bilirubin Total 0.5 0.0-1.0 mg/dL Bilirubin Direct 0.1 0.0-0.5 mg/dL Aspartate Amino Transferase 26 5-31 U/L Alanine Aminotransferase 39 0-31 U/L Total Protein 7.3 6.5-8.0 g/dL Albumin Level 3.8 3.5-5.0 g/dL Alkaline Phosphatase 73 39-117 U/L UA CC w/rflx Micro + Cult (N ot yet reviewed by provider) Interpretation: Performing Lab:[facility], [address] [place] [phone] Notes/Report: [id number] Urine, Clean Catch Color Urine Yellow Appearance Urine Clear PH 6.5 5.0-9.0 Glucose Urine UA Negative Negative mg/dL Urine Blood Negative Negative Specific [place] - Urine 1.025 1.005-1.025 Urine Protein Trace Neg-Trace mg/dL Urine Ketones Negative Negative mg/dL Nitrite Urine Negative Negative Leukocyte Esterase Urine Negative Negative Reason For Referral No Information Medications Medication SIG (Take, Route, Frequency, Duration) Notes Start Date End Date Status Hyoscyamine Sulfate ER 0.375 MG 1 tablet Orally once a day for 30 day(s) 09/19/2021 Not-Taking Immunizations Vaccine Route Administration Date Status Comme nts SARS-COV-2 Moderna Unknown 06/05/2020 Administered SARS-COV-2 Moderna Unknown 07/03/2020 Administered SARS-COV-2 Moderna Unknown 03/23/2021 Administered Social History Tobacco Use: Social History Observation Description Date Details (start date - stop date) Never Smoker NA - NA Tobacco Use/Smoking Question Answer Notes Patient is a nonsmoker Additional Findings: Tobacco Non-User Cu rrent non-smoker, currently using no form of tobacco Alcohol Screen Question Answer Notes Did you have a drink contain ing alcohol in the past year? Yes How often did you have a dri nk containing alcohol in the past year? Monthly or less (1 point) How many drinks did you have on a typical day when you were drinking in the past year? 1 or 2 drinks (0 point) How often did you have 6 or more drinks on one occasion in the past year? Never (0 point) Points 1 Interpretation Negative Problems Problem Type SNOMED Code ICD Code Onset Dates Problem Status W/U Status Risk Notes Problem 7511553 Diverticulitis o f large intestine without perforation or abscess without bleeding (K57.32) Active confirmed Problem 151456338 Obesity (BMI 30-39.9) (E66.9) Active confirmed Problem Irritable bowel syndrome (47539893) IBS (irritable bowel syndrome) (K58.9) Active confirmed Problem 409191552 Diverticulosis (K57.90) Active confirmed Problem 802909801 Allergy history, eggs (Z91.012) Active confirmed Vital Signs Blood pressure diastolic 58 mm Hg 09/20/2023 renee ght is down 17 pounds since 09-17-22 Height 63 in 09/20/2023 weight is down 17 pounds since 09-17-22 Blood pressure systolic 94 mm Hg 09/20/2023 weig ht is down 17 pounds since 09-17-22 Weight 177 lbs 09/20/2023 weight is down 17 pounds since 09-17-22 BMI 31.35 kg/m2 09/20/2023 weight is down 17 pounds since 09-17-22 Encounters Encounter Location Date Provider Diagnosis Cruz Hill MD [address] [place] [address] [address] [place] [id number] 09/13/2023 Cruz Hill Blood tests for routine general physical examination Z00.00 Cruz Hill MD [address] [place] [id number] 05/02/2024 Cruz Hill Hematuria, unspecified type R31.9 Cruz Hill MD [address] [place] [address] [address] [place] [id number] 09/20/2023 Cruz Hill Allergy history, eggs Z91.012 ; Annual physical exam Z00.00 ; IBS (irritable bowel syndrome) K58.9 ; History of colonoscopy Z98.890 and Depression screening Z13.31 Cruz Hill MD [address] [place] [address] [address] [place] [id number] 04/20/2024 Cruz Hill Assessments Encounter Date Diagnosis (ICD Code) Assessment Notes Treatment Notes Treatment Clinical Notes Section Notes 09/13/2023 Blood tests for routine general physical examination (ICD-10 - Z00.00) 05/02/2024 Hematuria, unspecified type (ICD-10 - R31.9) 09/20/2023 Allergy history, eggs (ICD-10 - Z91.012) 09/20/2023 Annual physical exam (ICD-10 - Z00.00) labs reviewed and discussed with patient 09/20/2023 IBS (irritable bowel syndrome) (ICD-10 - K58.9) doing better., will cntinue to monitor 09/20/2023 History of colonoscopy (ICD-10 - Z98.890) need results from biopsy 2019 dr monroy/ REQUEST MADE TO [facility] DR MONROY @ [facility] 09/20/2023 Depression screening (ICD-10 - Z13.31) negative screen Plan Of Treatment Pending Test Test Name Order Date URINALYSIS, COMPLETE 09/16/2020 URINE CULTURE 09/16/2020 GROUP B STREPTOCOCCUS CULTURE 05/02/2019 Urinalysis and Microscopic 09/20/2020 PSA,Total (Free>4and<10) 09/06/2020 UA CC w/rflx Micro + Cult 05/02/2024 UA ClnCatch+Micro w/rflx Cult 05/02/2024 Next Appt Details Provider Name:Cruz Law ier, 09/18/2024 07:15:00 AM, [address] [place] [address], [address], [phone], Provider Name:Cruz Law ier, 09/25/2024 08:30:00 AM, [address] [place] [address], [place] [address], [place], [place], [phone], Insurance Providers Payer Name Payer Address Payer Phone Subscriber Number Group Number Insured Name Patient Relationship to Insured Coverage Start Date Coverage End Date [employer] [address] [place], [place] [phone] [id number] Ap Taveras Self - patient is the insured Medical (General) History Medical History History ICD Code 04/18/2019 Colonscopy- Dr Monroy
--- OUTSIDE RECORDS SUMMARY | 2024-05-02 11:45 | XMS_ITS ---
Author Organization Cruz Hill MD Address [address] [place] [phone] Care Team Providers Care Public Health Veterinarian Name Role Phone Cruz Hill Primary Care Provider REASON FOR VISIT ER Encounters Encounter Location Date Provider Diagnosis Cruz Hill MD [address] [place] [phone] 04/20/2024 Cruz Hill Plan Of Treatment Next Appt Details Provider Name:Cruz traore, 09/18/2024 07:15:00 AM, [address] [place] [address], [address], [phone], Provider Name:Cruz traore, 09/25/2024 08:30:00 AM, [address] [place] [address], [address] [place] [address], [phone], Progress Notes * Vidya TAVERASOB:1980 (44 yo F)Acc No.[id number]:04/20/2024 Patient:?Ap Taveras :1980???Age:44 Y???Sex:Female [address] [place], [address] * true * Date:? Generated for Kathleen bernal/Miller/Luisitting on:?05/02/2024 11:45 AM EST
--- OUTSIDE RECORDS SUMMARY | 2024-05-02 11:45 | XMS_ITS ---
Author Organization [facility] Address [address] [place] [phone] Care Team Providers Care Rig Welder Name Role Phone Sergio SHEEHAN, Cruz Primary Care Provider Ed Bower Unavailable [phone] REASON FOR VISIT wasn in ER for abd pain MEDICATIONS Medication SIG (Take, Route, Frequency, Duration) Notes Start Date End Date Status Hyoscyamine Sulfate SL 0.125 MG take 1 or 2 Sublingual Every 4 to 6 hours as needed for abdominal cramps/ bloating/discomfort for 30 days Active PROBLEMS Problem Type ICD Code Onset Dates Problem Status W/U Status Risk SNOMED Code Notes Problem Elevated liver function tests (R94.5) Active confirmed Elevated liver enzymes level (032396926) Encounters Encounter Location Date Provider Diagnosis [facility] [address] [place] [phone] 04/18/2024 Ed Orellana Elevated liver function tests R94.5 and Irritable bowel syndrome with constipation K58.1 ASSESSMENTS Encounter Date Diagnosis Assessment Notes Treatment Notes Treatment Clinical Notes 04/18/2024 Elevated liver function tests (ICD-10 - R94.5) 04/18/2024 Irritable bowel syndrome with constipation (ICD-10 - K58.1) PLAN OF TREATMENT Medication Medication Name Sig Start Date Stop Date Notes Hyoscyamine Sulfate SL 0.125 MG take 1 or 2 Sublingual Every 4 to 6 hours as needed for abdominal cramps/ bloating/discomfort for 30 days Pending Test Test Name Order Date LIVER PROFILE 04/18/2024 Next Appt Details Provider Name:Ed Orellana , 08/23/2024 01:20:00 PM, [address] [place] [address], [address], [place], [phone],
--- OUTSIDE RECORDS SUMMARY | 2024-05-02 11:45 | XMS_ITS ---
Author Organization Cruz Hill MD Address [address] [place] [phone] Care Team Providers Care Immigration Services Officer Name Role Phone Cruz Hill Primary Care Provider [phone] Allergies No Known Allergies REASON FOR VISIT ANNUAL EXAM Medications Medication SIG (Take, Route, Frequency, Duration) Notes Start Date End Date Status Hyoscyamine Sulfate ER 0.375 MG 1 tablet Orally once a day for 30 day(s) 09/19/2021 Not-Taking Social History Tobacco Use: Social History Observation [...] Problem Status W/U Status Risk Notes Problem [id number] Allergy history, eggs (Z91.012) Active confirmed Vital Signs Blood pressure systolic 94 mm Hg 09/20/19 24 Blood pressure diastolic 58 mm Hg 024 Height 63 in 09/20/2023 Weight 177 lbs 09/20/2023 BMI 31.35 kg/m2 09/20/2023 weight is down 17 pounds sin 09-17-22 Encounters Encounter Location Date Provider Diagnosis Cruz Hill MD [address] [place] [address] [place] [phone] 09/20/2023 Cruz Hill Allergy history, eggs Z91.012 ; Annual physical exam Z00.00 ; IBS (irritable bowel syndrome) K58.9 ; History of colonoscopy Z98.890 and Depression screening Z13.31 Assessments Encounter Date Diagnosis (ICD Code) Assessment Notes Treatment Notes Treatment Clinical Notes Section Notes 09/20/2023 Allergy history, eggs (ICD-10 - Z91.012) 09/20/2023 Annual physical exam (ICD-10 - Z00.00) labs reviewed and discussed with patient 09/20/2023 IBS (irritable bowel syndrome) (ICD-10 - K58.9) doing better., will cntinue to monitor 09/20/2023 History of colonoscopy (ICD-10 - Z98.890) need results from biopsy 2020 dr monroy/ REQUEST MADE TO [facility] @ [facility] 09/20/2023 Depression screening (ICD-10 - Z13.31) negative screen Plan Of Treatment Treatment Notes Assessment Notes Annual physical exam labs reviewed and d iscussed with patient IBS (irritable bowel syndrome) doing bet ter., will cntinue to monitor History of colonoscopy need results from biopsy 2020 dr monroy/ REQUEST MADE TO [facility] [address] [facility] @ [facility] Depression screening negative screen Next Appt Details Follow Up: 1 Year, Reason: Provider Name:Cruz traore, 09/18/2024 07:15:00 AM, [address] [place] [address], [address], [place], [place], [phone], Provider Name:Cruz traore, 09/25/2024 08:30:00 AM, [address] [place] [address], [address], [place], [place], [phone], Progress Notes * Vidya TAVERASOB:1980 (43 yo F)Acc No.[id number]:09/20/2023 Progress Notes Patient:?Ap Taveras Provider:?Cruz Hill MD :1980???Age:43 Y???Sex:Female D ate:09/20/2023 Address:[address] [place], [place] [phone] Subjective: * Chief Complaints: * ???ANNUAL EXAM * HPI: ???Depression Screening:?PHQ-9?Little interest or pleasure in doing things?Not at all,?Feeling down, depressed, or hopeless?Not at all,?Trouble falling or staying asleep, or sleeping too much?Not at all,?Feeling tired or having little energy?Not at all,?Poor appetite or overeating?Not at all,?Feeling bad about yourself or that you are a failure, or have let yourself or your family down?Not at all,?Trouble concentrating on things, such as reading the newspaper or watching television?Not at all,?Moving or speaking so slowly that other people could have noticed; or the opposite, being so fidgety or restless that you have been moving around a lot more than usual?Not at all,?Thoughts that you would be better off or of hurting yourself in some way?Not at all,?Total Score?0.?Interpretation and Intervention?Depression Screening Findings?Negative,?Follow-Up for Depression?: review of PHQ-9 found negative result, no follow-up needed.? patient is a 43 yo female here for yearly exam with review of recent labs and follow up of chronic issues, / is seeing a stoneworking sander regularly. diet started 8 months ago. ???Communication Needs:?Communication Needs?Does the patient have a hearing impairment?No,?Does the patient have a vision impairment??Yes,?If yes, what is the vision impairment??Glasses, Contact Lenses,?Does the patient have a cognition impairment??No.?SDOH Questions:?SDOH Questions?In the past year have you been worried about losing housing??No,?In the past year have you or any family members you live with been unable to get any of the following when it was really needed? Check all that apply:?None.? * ROS:?General/Constitutional:?Change in appetite?denies.?Chills?denies.?Fever?denies.?Ophthalmologic:?Blurred vision?denies.?Discharge?denies.?Pain?denies.?ENT:?Decreased hearing?denies.?Sore throat?denies.?Swollen glands?denies.?Endocrine:?Cold intolerance?denies.?Excessive thirst?denies.?Heat intolerance?denies.?Weight loss?denies.?Respiratory:?Cough?denies.?Shortness of breath at rest?denies.?Shortness of breath with exertion?denies.?Wheezing?denies.?Cardiovascular:?Chest pain at rest?denies.?Chest pain with exertion?denies.?Irregular heartbeat?denies.?Shortness of breath?denies.?Gastrointestinal:?Abdominal pain?denies.?Change in bowel habits?denies.?Diarrhea?denies.?Nausea?denies.?Rectal bleeding?denies.?Vomiting?denies .?Genitourinary:?Blood in urine?denies.?Difficulty urinating?denies.?Frequent urination?denies.?Urinary incontinence?Denies.?Musculoskeletal:?Painful joints?denies.?Weakness?denies.?Skin:?Dry skin?denies.?Itching?denies.?Denies?Mole(s),? changes in moles, new moles or any lesions of concern.?Denies?Photosensitivity.?Rash?denies.?Neurologic:?Dizziness?denies.?Fainting?denies.?Headache?denies.? * Medical History:? * Surgical History:? * Hospitalization/Major Diagno stic Procedure:? * Family History:?Father: abner larkin 65 yrs.?Mother: alive 65 yrs.?2 brother(s) , 1 sister(s) . 2 daughter(s) . .? Mother healthy Father -?, Denies mental health/substance abuse family history, Denies mental health/substance abuse family history, No pertinent family medical history. * Social History:?Tobacco Use:?Tobacco Use/Smoking?Patient is a?nonsmoker,?Additional Findings: Tobacco Non-User?Current non-smoker, currently using no form of tobacco.?Drugs/Alcohol:?Alcohol Screen?Did you have a drink containing alcohol in the past year??Yes,?How often did you have a drink containing alcohol in the past year??Monthly or less (1 point),?How many drinks did you have on a typical day when you were drinking in the past year??1 or 2 drinks (0 point),?How often did you have 6 or more drinks on one occasion in the past year??Never (0 point),?Points?1,?Interpretation?Negative.?Miscellaneous:?no Caffeine. Children: yes. Community involvements: yes. Exercise: yes, walks the dog QD. Home smoke detector use: yes. Housing: owning. Living with: spouse, family. Marital status: . Occupation: weeks/months/years, works full-time. no Travel outside of the [place]. * Medications:?Not-Taking/[facility] yoscyamine Sulfate ER 0.375 MG Tablet Extended Release 12 Hour 1 tablet Orally once a dayNot-Taking/PRN Hyoscyamine Sulfate ER 0.375 MG Tablet Extended Release 12 Hour 1 tablet Orally once a dayDiscontinuedWegovy 2.4 MG/0.75ML Solution Auto-injector inject 0.5ml subcutaneously every other week Subcutaneous weeklyMedication List reviewed and reconciled with the patientDiscontinued Wegovy 2.4 MG/0.75ML Solution Auto-injector inject 0.5ml subcutaneously every other week Subcutaneous weeklyMedication List reviewed and reconciled with the patient * Allergies:?N.K.D.A.yes[Aller gies Verified] Objective: * Vitals:?Ht: 63, Wt:177, BMI: 31.35, BP:94/58 weight is down 17 pounds since 09-17-22. * ???Past Orders: ???Lab:Complete Blood Count Auto Diff (Order Date - 09/13/2023) (Collection Date - 09/13/2023) ? Value Reference Range ?White Blood Count 5.4 4. 8-10.8 - X10*3/uL ?Red Blood Count 4.56 4.20 -5.50 - X10*6/uL ?Hemoglobin 13.5 12.0-16.0 - g/dl ?Hematocrit 41.3 37.0-47.0 - % ?Mean Corpuscular Volume 90.6 80.0-98.0 - fL ?Mean Corpuscular Hemoglobin 29.6 27.0-33.0 - pg ?Mean Corpuscular HGB Conc 32.7 31.0-35.0 - g/dl ?Red Cell Distribution Width 13.4 11.0-16.0 - % ?Platelet Count 205 160-4 00 - X10*3/uL ?Mean Platelet Volume 11.5 9.4-12.3 - fL ?Neutrophils Percent Auto 61.9 45-73 - % ?Imm Gran Pct Auto 0.2 0. 0-0.4 - % ?Lymphocytes Percent Auto 28.1 20-40 - % ?Monocytes Percent Auto 6.7 2-11 - % ?Eosinophils Percent Auto 2.4 0-4 - % ?Basophils Percent Auto 0.7 0-2 - % ?NRBC Pct Auto 0.0 0.0-0. 2 - /100WBC ?Neutrophils Absolute Auto 3.3 2.0-8.3 - x10*3/uL ?Imm Gran Abs Auto 0.01 0. 00-0.03 - X10*3/uL ?Lymphocytes Absolute Auto 1.5 1.2-4.9 - X10*3/uL ?Monocytes Absolute Auto 0.4 0.1-1.2 - X10*3/uL ?Eosinophils Absolute Auto 0.1 0.0-0.4 - X10*3/uL ?Basophils Absolute Auto 0.0 0.0-0.2 - X10*3/uL ?NRBC Abs Auto 0.000 0.0-0. 012 - X10*3/uL ???Lab:Lipid Panel (Order Da te - 09/13/2023) (Collection Date - 09/13/2023) ? Value Reference Range ?Triglycerides 171 H <150 - mg/dL ?Cholesterol 220 H <200 - m g/dL ?LDL Cholesterol Calculated 135 H <100 - mg/dL ?HDL Cholesterol 51 >40 - mg/dL * Examination: ???General Examination: ?GENERAL APPEARANCE:?well developed, well nourished, in no acute distress.?HEAD:?normocephalic, atraumatic.?EYES:?pupils equal, round, reactive to light and accommodation, sclera non-icteric.?EARS:?normal.?ORAL CAVITY:?mucosa moist.?THROAT:?clear.?NECK/THYROID:?neck supple, full range of motion, no cervical lymphadenopathy, no bruits.?SKIN:?warm and dry, no suspicious lesions.?HEART:?regular rate and rhythm, S1, S2 normal, no murmurs.?LUNGS:?clear to auscultation bilaterally.?BREASTS:?not examined.?ABDOMEN:?soft, nontender, nondistended, bowel sounds present, normal, no organomegaly , no masses palpable.?RECTAL EXAM:?done by bowling alley refinisher.?FEMALE GENITOURINARY:?done by bowling alley refinisher.?EXTREMITIES:?no clubbing, cyanosis, or edema.?NEUROLOGIC:?nonfocal, motor strength normal upper and lower extremities, sensory exam intact.? Assessment: * Assessment: 1.?Annual physical exam - Z0 0.00 (Primary)?2.?Allergy history, eggs - Z91.012?3.?IBS (irritable bowel syndrome) - K58.9?4.?History of colonoscopy - Z98.890?5.?Depression screening - Z13.31? Plan: * Treatment: 2.?IBS (irritable bowel synd mary)? Notes: doing better., will cntinue to monitor.?? 3.?History of colonoscopy? Notes: need results from biopsy 2020 dr monroy/ REQUEST MADE TO [facility] @ [facility].?? 4.?Depression screening? Notes: negative screen.?? * Procedure Codes:? * Preventive Medicine:? ??Counseling:?Care goal follow-up plan:?Counseling for abnormal BMI provided?Yes,?Above Normal BMI Follow-up?Giving encouragement to exercise.? * Follow Up:?1 Year * * Sign off status: Completed true * Provider:?Cruz Hill MD Date:?0 09/20/2023 Generated for Kathleen bernal/Miller/eTfrancieitting on:?05/02/2024 11:44 AM EST History and Physical Notes * HPI (History of Present Illness) Category Sub-Category Detail Notes Category Not es Depression Screening PHQ-9 Little inte rest or pleasure in doing things: Not at all patient is a 43 yo female here for yearly exam with review of recent labs and follow up of chronic issues, / is seeing a stoneworking sander regularly. diet started 8 months ago. Feeling down, depressed, or hopeless: No t at all Trouble falling or staying asleep, or sl eeping too much: Not at all Feeling tired or having little energy: N ot at all Poor appetite or overeating: Not at all Feeling bad about yourself o r that you are a failure, or have let yourself or your family down: Not at all Trouble concentrating on thi ngs, such as reading the newspaper or watching television: Not at all Moving or speaking so slowly that other people could have noticed; or the opposite, being so fidgety or restless that you have been moving around a lot more than usual: Not at all Thoughts that you would be b bandar off or of hurting yourself in some way: Not at all Total Score: 0 Interpretation and Intervention Depression oRbert nicole Findings: Negative Follow-Up for Depression: : review of PH Q-9 found negative result, no follow-up needed SDOH Questions SDOH Questions In the past year have you been worried about losing housing?: No In the past year have you or any family members you live with been unable to get any of the following when it was really needed? Check all that apply:: None Communication Needs Communication Needs Does the patient have a hearing impairment: No Does the patient have a vision impairmen t?: Yes ?If yes, what is the vision impairment?: Glasses, Contact Lenses Does the patient have a cognition impair ment?: No Examination Category Sub-Category Detail Notes Category Not es General Examination GENERAL APPEARANCE: well dev eloped, well nourished, in no acute distress HEAD: normocephalic, atrau matic EYES: pupils equal, round, reactive to light and accommodation, sclera non- icteric EARS: normal THROAT: clear NECK/THYROID: neck supple, full ra nge of motion, no cervical lymphadenopathy, no bruits HEART: regular rate and rhy thm, S1, S2 normal, no murmurs LUNGS: clear to auscultatio n bilaterally ABDOMEN: soft, nontender, non distended, bowel sounds present, normal, no organomegaly , no masses palpable NEUROLOGIC: nonfocal, motor stre ngth normal upper and lower extremities, sensory exam intact SKIN: warm and dry, no lucio picious lesions EXTREMITIES: no clubbing, cyanosi s, or edema BREASTS: not examined RECTAL EXAM: done by bowling alley refinisher FEMALE GENITOURINARY: done by bowling alley refinisher ORAL CAVITY: mucosa moist
== END 2024-05-02 08:46 | disposition home or self-care (01) ==
LOC: HO.LNP 08:45
PROVIDERS: Visit Provider Internal Medicine
DX: R31.9 Hematuria, unspecified (principal)
CPT/HCPCS: 81003

== ENCOUNTER 2024-09-18 10:05 | Outpatient (REF) | payer BC, SELFPAY ==
[2024-09-18 10:08] LABS: MANUAL DIFF FLAG NO
[2024-09-18 10:37] LABS: Basophils Percent Auto 0.7 % (0-2); Eosinophils Absolute Auto 0.2 X10*3/uL (0.0-0.4); Eosinophils Percent Auto 3.7 % (0-4); Hematocrit 38.6 % (37.0-47.0); Hemoglobin 12.4 g/dl (12.0-16.0); Imm Gran Abs Auto 0.01 X10*3/uL (0.00-0.03); Imm Gran Pct Auto 0.2 % (0.0-0.4); Lymphocytes Absolute Auto 1.6 X10*3/uL (1.2-4.9); Mean Corpuscular HGB Conc 32.1 g/dl (31.0-35.0); Mean Corpuscular Hemoglobin 29.7 pg (27.0-33.0); Mean Corpuscular Volume 92.3 fL (80.0-98.0); Mean Platelet Volume 11.9 fL (9.4-12.3); Monocytes Absolute Auto 0.4 X10*3/uL (0.1-1.2); Monocytes Percent Auto 7.1 % (2-11); Neutrophils Absolute Auto 3.2 x10*3/uL (2.0-8.3); Neutrophils Percent Auto 59.3 % (45-73); Platelet Count 225 X10*3/uL (160-400); Red Blood Count 4.18 X10*6/uL (4.20-5.50); Red Cell Distribution Width 13.3 % (11.0-16.0); White Blood Count 5.4 X10*3/uL (4.8-10.8)
[2024-09-18 10:56] LABS: Alanine Aminotransferase 8 U/L (0-31); Albumin Level 3.9 g/dL (3.5-5.0); Alkaline Phosphatase 45 U/L (39-117); Anion Gap 9 (12-20); Aspartate Amino Transferase 22 U/L (5-31); Bilirubin Total 0.3 mg/dL (0.0-1.0); Blood Urea Nitrogen 10 mg/dL (9-16); Calcium 8.9 mg/dL (8.4-10.2); Carbon Dioxide 22 mmol/L (22-29); Chloride 113 mmol/L (96-108); Cholesterol 223 mg/dL (<200); Estimated Glomerular Filt Rate > 60; Glucose Fasting 91 mg/dL (60-99); HDL Cholesterol 50 mg/dL (>40); LDL Cholesterol Calculated 137 mg/dL (<100); Sodium 140 mmol/L (135-145); Triglycerides 180 mg/dL (<150)
--- OUTSIDE RECORDS SUMMARY | 2024-09-18 11:12 | XMS_ITS ---
Author Organization [facility] Address [address] [place] [phone] Care Team Providers Care Customer Care Professional Name Role Phone Sergio SHEEHAN, Cruz Primary Care Provider Ed Bower Unavailable [phone] REASON FOR VISIT f/u from hospital Encounters Encounter Location Date Provider Diagnosis [facility] [address] [place] [phone] 08/23/2024 Ed Orellana Plan Of Treatment No Information Progress Notes * ANGELA TAVERASOB:1980 (44 yo F)Acc No.[id number]:08/23/2024 Progress Notes Patient:?AMALIA TAVERAS Provider:?Ed Orellana MD :1980???Age:44 Y???Sex:Female D ate:08/23/2024 Address:[address] [place], [place] [phone] Pcp:Cruz Hill MD Subjective: * Chief Complaints: * ???1. F/u from hospital. * Medical History:? Objective: * Vitals:? Assessment: Plan: * Treatment: * * The named appointment provid er may or may not be the originator of this progress note, and it is not deemed complete until electronically signed by the appointment provider. Sign off status: Pending * Provider:?Ed Orellana MD Date:? 025 Generated for Jamili dolores/Miller/eTransmitting on:?09/18/2024 11:12 AM EDT
== END 2024-09-18 10:06 | disposition home or self-care (01) ==
LOC: HO.LNP 10:05
PROVIDERS: Visit Provider Internal Medicine
DX: Z00.00 Encounter for general adult medical examination without abnormal findings (principal); K57.90 Diverticulosis of intestine, part unspecified, without perforation or abscess without bleeding; Z13.6 Encounter for screening for cardiovascular disorders
CPT/HCPCS: 80053; 80061; 85025